=== PATIENT | male | born 1950 | race Caucasian/White ===

== ENCOUNTER 2017-04-24 18:04 | Inpatient (IN) | payer OTHER, MEDICARE ==
[~2017-04-24] VITALS: Ht 185.4 cm; Wt 79.4 kg
[~2017-04-24 18:04] MED LIST: ADVAIR 250-501 EACH INH; ASPIRIN81 M4 PO; ATACAND16 M1 PO; ATACAND16 MG PO; ATORVASTATIN CA20 MG PO; AUGMENTIN 875-1 EACH PO; AVELOX400 M1 PO; AZITHROMYCIN250 M1 PO; BACTRIM 400-801 EACH PO; BRILINTA90 M1 PO; CLONAZEPAM1 MG PO; DAILY MULTIPLE1 EACH PO; ESCITALOPRAM10 MG PO; LEXAPRO20 M1 PO; LIPITOR20 M2 PO; LIPITOR40 M1 PO; LOPERAMIDE2 M1 PO; MONTELUKAST SOD10 M1 PO; MUCINEX600 M1 PO; NASACORT16.9 ML; OFEV150 MG PO; OMEPRAZOLE40 M1 PO; PREDNISONE10 M2 PO; PREDNISONE20 M1 PO; TESSALON PERLE100 M1 PO; VENTOLIN HFA18 GM INH; XANAX0.5 M1 PO; ZOLPIDEM TARTRA10 MG PO; ZYRTEC10 M6 PO
--- NOTE | 2017-04-24 18:19 | NUR ---
66 YEAR OLD MALE TO ER FROM HIS HOME WITH INCREASED WEAKNESS AND SOB FOR THE PAST FEW DAYS. PT HAD L LUNG TRANSPLANT AT [facility] IN [place] IN SEPTEMBER, A COUPLE WEEKS AGO HE WAS ADMITTED THERE AGAIN DUE TO INFECTION TO INCISION AREA AND THEY RE-OPENED THE AREA . PT HAS PICC LINE IN PLACE TO R ARM. MALCOLM INTACT TO L BREAST LINE . PT COMPLAINS OF 3 DAYS OF INCREASED WEAKNESS AND NO APPETITE, TEMP 99.9 ON ARRIVAL TO ER . PT ALSO NOTED WITH CHEST TUBE TO L SIDE .
--- NOTE | 2017-04-24 18:23 | NUR ---
PT EVALUATED BY PA STUDENT.
--- NOTE | 2017-04-24 19:05 | ED DYSPNEA/ASTHMA COMPLAINT ---
History of Present Illness General Chief Complaint: General Adult Stated Complaint: BIBA WEAKNESS, POOR FLUID&FOOD INTAKE X2 WEEKS Source: patient Exam Limitations: no limitations Vital Signs & Intake/Output Vital Signs & Intake/Output Vital Signs Date Time Temp Pulse Resp B/P B/P Pulse O2 O2 Flow FiO2 Mean Ox Delivery Rate 04/25 1600 Room Air 04/25 1528 98.6 73 20 138/72 98 04/25 1139 80 120/70 04/25 0647 99.9 87 20 122/76 96 Nasal 2.0L Cannula 04/25 0246 93 Nasal 2.0L Cannula 04/25 0209 98.8 86 20 146/83 95 Room Air 04/25 0020 98.3 82 18 1324/82 95 Room Air 04/24 2339 99.9 04/24 2226 99.9 90 18 140/86 95 Room Air 04/24 2112 100.2 04/24 2049 100.2 ED Intake and Output 04/25 0000 04/24 1200 Intake Total 0 Output Total Balance 0 Intake, Oral 0 Patient 175 lb Weight Triage Note: 66 YEAR OLD MALE TO ER FROM HIS HOME WITH INCREASED WEAKNESS AND SOB FOR THE PAST FEW DAYS. PT HAD L LUNG TRANSPLANT AT [facility] IN [place] IN SEPTEMBER, A COUPLE WEEKS AGO HE WAS ADMITTED THERE AGAIN DUE TO INFECTION TO INCISION AREA AND THEY RE-OPENED THE AREA . PT HAS PICC LINE IN PLACE TO R ARM. MAREN INTACT TO L BREAST LINE . PT COMPLAINS OF 3 DAYS OF INCREASED WEAKNESS AND NO APPETITE, TEMP 99.9 ON ARRIVAL TO ER . PT ALSO NOTED WITH CHEST TUBE TO L SIDE . Triage Nurses Notes Reviewed? yes Onset: Gradual Duration: getting worse Timing: recent history Severity: severe HPI: Patient is a 66-year-old male with a past medical history of hypertension, hyperlipidemia, COPD NOT on home O2, interstitial pulmonary fibrosis, pneumonitis, CAD status post cardiac stent who is communication professor is Dr. Barros who received a left-sided lung transplant from [facility] in September 2016 in which he subsequently had a pulmonary embolism after and multiple secondary postoperative infections where his last admission and discharge to [facility] was approximately 2-3 weeks ago. It is noted through old records that patient's last cardiac catheterization was March showing 60% stenosis of LAD. He currently has IVC filter Patient presents emergency room brought in by ambulance for feeling a 2 week history of generalized weakness and fatigue patient is currently too weak to get out of bed and this patient has had poor by mouth intake and a past 2 days patient is describing room spinning sensation and mild headache concerns. Patient has had a 2 week history of clear productive cough and dyspnea on exertion. Denies any fever chills chest pain and arm pain jaw pain nausea vomiting leg swelling, hemoptysis. Patient currently is taking CellCept, Bactrim, Levaquin and meropenem prophylactically for his lung transplant. (BROCK SARMIENTO,YEHUDA) Allergies Coded Allergies: adhesive tape (RASH - PAPER TAPE ONLY 04/24/17) Reconcile Medications 0.9 % Sodium Chloride (Sodium Chloride) 0.9 % SYRINGE 10 ML IV DAILY POST INFUSION (Reported) Alendronate Sodium 70 MG TABLET 1 TAB PO QSUN OSTEOPOROSIS (Reported) in the morning, at least 30 minutes before the first food, beverage, or medication of the day Aspirin (Aspirin*) 81 MG TAB.CHEW 1 TAB PO DAILY CARDIAC STENTS (Reported) Atorvastatin Calcium (Lipitor) 40 MG TABLET 1 TAB PO DAILY cholestrol ( Reported) Calcium Citrate/Vitamin D3 (Citracal + D Maximum Caplet) 315 MG-250 UNIT TABLET 1 TAB PO TID SUPPLEMENT (Reported) Cetirizine HCl (Zyrtec) 10 MG TABLET 1 TAB PO DAILY SEASONAL ALLERGIES ( Reported) Docusate Sodium (Colace) 100 MG CAPSULE 1 CAP PO TID STOOL SOFTENER (Reported ) Ferrous Fumarate (Ferretts) 325 MG (106 MG) TABLET 1 TAB PO DAILY SUPPLEMENT (Reported) Heparin Sodium,Porcine/Pf (Heparin Flush 10 Units/Ml Syr) 10 UNIT/ML SYRINGE 5 ML IV AD POST INFUSION (Reported) Levofloxacin 750 MG TABLET 1 TAB PO Q48H ANTIBIOTIC (Reported) Magnesium Oxide (Magnesium) 400 MG CAPSULE 1 CAP PO BID SUPPLEMENT (Reported) Metoprolol Tartrate 25 MG TABLET 12.5 MG PO BID HEART/BP (Reported) Mycophenolate Mofetil (Cellcept) 500 MG TABLET 1 TAB PO BID ANTIREJECTION ( Reported) Nystatin 100,000 UNIT/ML ORAL.SUSP 5 ML PO TID THRUSH (Reported) Omeprazole 20 MG TABLET.DR 1 TAB PO DAILY GI (Reported) Ondansetron HCl (Zofran) 4 MG TABLET 1 TAB PO BID PRIOR TO TIGECYCLINE ( Reported) Prednisone 5 MG TABLET 1 TAB PO DAILY STEROID (Reported) Sulfamethoxazole/Trimethoprim (Bactrim 400-80 MG Tablet) 400 MG-80 MG TABLET 1 TAB PO Monday IPF Tacrolimus (Prograf) 1 MG CAPSULE 3 MG PO 2100 IMMUNOSUPPRESSION (Reported) Tacrolimus (Prograf) 1 MG CAPSULE 2 CAP PO 0900 IMMUNOSUPPRESSION (Reported) Tacrolimus (Prograf) 0.5 MG CAPSULE 1 CAP PO 0900 IMMUNOSUPPRESSION (Reported ) Tigecycline 50 MG VIAL 50 MG IV BID INFECTION (Reported) Valganciclovir Hydrochloride (Valcyte) 450 MG TABLET 1 TAB PO Q48H CMV ( Reported) (SANIYA BEE,CAROL) Past History Travel History Traveled to [place] past 21 day No Medical History Any Pertinent Medical History? 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 No (YEHUDA SALEEM) Review of Systems Review of Systems Constitutional: Reports: see HPI, malaise, weakness. EENTM: Reports: no symptoms. Respiratory: Reports: see HPI, cough, short of breath. Cardiovascular: Reports: see HPI. Denies: chest pain, peripheral edema. GI: Reports: no symptoms. Genitourinary: Reports: no symptoms. Musculoskeletal: Reports: no symptoms. Skin: Reports: no symptoms. Neurological/Psychological: Reports: see HPI, headache. Hematologic/Endocrine: Reports: no symptoms. Immunologic/Allergic: Reports: no symptoms. All Other Systems: Reviewed and Negative (YEHUDA SALEEM) Physical Exam Physical Exam General Appearance: no apparent distress, alert, comfortable Head: atraumatic Eyes: Bilateral: normal appearance, PERRL, EOMI. Respiratory: no respiratory distress Comments: HEENT: Normal EENT exam, extraocular motion intact, no nystagmus. Pupils equally round and reactive to light and accommodation. Nose is atraumatic. External auditory canal and Tympanic membranes clear. Pharynx normal. No swelling or edema. Neck: Supple, no lymphadenopathy, normal range of motion without pain or tenderness Back: Nontender, no CVA tenderness. Cardiovascular: Regular rate and rhythms no murmurs rubs or gallops, normal JVP Respiratory: Chest nontender. LEFT SIDED INDWELLING THORACO CATHETER Right sided posterior lung crackles noted Abdomen: Soft, nontender nondistended, no appreciable organomegaly. Normal bowel sounds. No ascites Extremity: No edema, no calf tenderness to palpation, normal and equal pulses. Neuro: Alert oriented x3, motor sensory normal, cranial nerves II through XII grossly intact. Skin: No appreciable rash on exposed skin, skin is warm and dry. Psych: Mood and affect is normal, memory and judgment is normal. Diagram Chest, Abdomen, Back: 1) Surgical incision scar noted with intact maren with noted yellow dried crusty scant discharge Core Measures ACS in differential dx? No Severe Sepsis Present: No Septic Shock Present: No (BROCK SARMIENTO,YEHUDA) Progress Differential Diagnosis: asthma, AMI, bronchitis, costochondritis, CHF, COPD, musculoskeletal pain, pericarditis, pulmonary embolism, pneumonia, pneumothorax, rib fracture, unstable angina, VERTIGO, SAH, CANCER, PNA, URI Plan of Care: Orders Procedure Date/time Status CBC WITHOUT DIFFERENTIAL 04/26 06 Active BASIC ELECTROLYTES PLUS BUN&CR 04/26 06 Active Heart Healthy Diet 04/25 B Active OXYGEN SETUP (GEN) 04/25 1430 Complete BASIC ELECTROLYTES PLUS BUN&CR 04/25 0800 Active Change service to 04/25 0736 Active CULTURE,BODY FLUID 04/25 0728 Active CYTOLOGY SPECIMEN 04/25 07 Active BODY FLUID TOTAL PROTEIN 04/25 0728 Active BODY FLUID LDH 04/25 0728 Active BODY FLUID CELL COUNT 04/25 0728 Active BODY FLUID GLUCOSE 04/25 0728 Active BODY FLUID ALBUMIN 04/25 0728 Active WESTERGREN SED RATE 04/25 0600 Complete Drains/Tubes 04/25 0357 Active Vital Signs 04/25 0328 Active Teach/Educate 04/25 0328 Active Pain Treatment and Response 04/25 0328 Active Nutritional Intake, Monitor 04/25 0328 Active Isolation 04/25 0328 Active Intake & Output 04/25 0328 Active Patient Care Conference 04/25 0328 Active Activity/Ambulation 04/25 0328 Active Vital Signs 04/25 0302 Active Code Status 04/25 0034 Active Patient Data 04/25 0021 Active BODY FLUID CELL COUNT 04/25 0015 Complete Lab Add-on Test 04/25 UNK Active VTE Mechanical Prophylaxis 04/25 UNK Active Nursing Misc 04/25 UNK Active BODY FLUID CELL COUNT 04/25 UNK Active Admit to inpatient 04/24 2332 Active Admit to inpatient 04/24 2323 Active Intake & Output 04/24 2052 Active Add-on Test (ER Only) 04/24 2042 Active CULTURE,URINE 04/24 2032 Active URINALYSIS 04/24 2032 Complete D-DIMER 04/24 1945 Complete C-REACTIVE PROTEIN 04/24 194 Complete Current Medications Sig/Howard Start time Last Medication Dose Stop Time Status Admin Valacyclovir HCl 450 MG Q48 04/27 1000 CAN (Valtrex) Trimethoprim/ 1 TAB 04/26 1000 AC Sulfamethoxazole (Bactrim SS) Tacrolimus 3 MG 2100 04/25 2100 AC (Prograf 1MG) Atorvastatin Calcium 40 MG 1700 04/25 1700 AC 04/25 (Lipitor) 1543 Heparin Sodium 5,000 UNIT Q8 04/25 1619 AC 04/25 (Porcine) 1707 Prednisone 5 MG DAILY 04/25 1231 AC 04/25 1352 Aspirin 81 MG DAILY 04/25 1000 AC 04/25 (Aspirin) 1138 Docusate Sodium 100 MG TID 04/25 1000 AC 04/25 (Colace) 1543 Ferrous Sulfate 325 MG DAILY 04/25 1000 AC 04/25 (Feosol) 1138 Levofloxacin 750 MG Q48 04/25 1000 AC 04/25 (Levaquin) 1139 Loratadine 10 MG DAILY 04/25 1000 AC 04/25 (Claritin) 1139 Metoprolol Tartrate 12.5 MG BID 04/25 1000 AC 04/25 (Lopressor) 1139 Mycophenolate Mofetil 500 MG BID 04/25 1000 AC 04/25 (CellCept) 1142 Tacrolimus 2.5 MG 0900 04/25 0900 AC 04/25 (Prograf 1MG) 1137 Meropenem 1 GM IQ8 04/25 0800 AC 04/25 (MEROPENEM) 1543 Omeprazole 20 MG DAILY AC 04/25 0700 AC 04/25 (Prilosec) 0504 Nystatin 5 ML TID 04/25 0300 AC 04/25 (Mycostatin Susp) 1543 Non-Formulary 0 SEE ADMIN CRITERIA 04/25 0230 CAN Medication (NON FORMULARY) Sodium Chloride 1,000 ML Q10H 04/25 0200 AC 04/25 (Normal Saline 0.9%) 1354 Laboratory Tests 04/25/17 0735: ESR Westergren 50 H 04/25/17 0600: Tacrolimus Pending 04/25/17 0236: ESR Westergren Cancelled 04/25/17 0136: Lymphocytes 10, % Normal PMNs 90, Fluid WBC 3586 H, Fld Total RBCs Counted 1914 H 04/24/17 2210: Lactic Acid Cancelled 04/24/177: Urine Color YEL, Urine Clarity CLEAR, Urine pH 7.0, Ur Specific [place] 1.010, Urine Protein NEG, Urine Ketones NEG, Urine Nitrite NEG, Urine Bilirubin NEG, Urine Urobilinogen 0.2, Ur Leukocyte Esterase NEG, Ur Microscopic EXAM NOT REQUIRED, Urine Hemoglobin NEG, Urine Glucose NEG Microbiology 04/25 728 BODY FLUID: Body Fluid Culture - COLB 04/25 728 BODY FLUID: Gram Stain - COLB 04/24 2147 URINE ROUT: Urine Culture - RES 04/24 2112 BLOOD: Blood Culture - RES On initial examination patient was in no apparent distress has nontender abdomen and physical exam was unremarkable except for right sided posterior crackles on exam it was due to history of present illness is most likely attributed to patient's pulmonary fibrosis. CT scan of the head was unremarkable for acute process and CT of the chest was also showing concerns of chronic pulmonary fibrosis and postprocedural transplant effusion. Patient's blood culture sputum culture and urine culture currently pending as well as the body fluid from the thoracal drain is pending. I initially discussed patient with transplant communication professor Dr. GUPTA from [facility] or my significant concerns of patient's low-grade fever and failure to thrive and presentation where she discussed with me that there currently is no transplant beds available at her facility and could not accept patient for transfer. She advised to continue antibiotics and have patient be admitted to our facility and slow fluid resuscitation and discussed with me that she will call our hospital when a bed becomes available to accept the patient. I also discussed admission with Dr. Esposito who was aware of admission Discussed admission with Dr. Lara Patient will be placed in isolation and isolation respiratory precautions was administered while patient was in the emergency room. Discussed disposition plan with the patient who agrees Patient also had improvement of room spinning sensation with meclizine. IV SLOW FLUID was administered (BROCK SARMIENTO,YEHUDA) Diagnostic Imaging: Viewed by Me: CT Scan. Radiology Impression: SEE COMMENTS Initial ED EK BPM, LAD Comments: PATIENT: RUBY SPARKS PRESENT AGE: 66 PATIENT ACCOUNT NO: [id number] : 51 LOCATION: [facility] ORDERING PHYSICIAN: YEHUDA SARMIENTO SERVICE DATE: 04/24/17 EXAM TYPE: CAT - CTA CHEST-PULMONARY EMBOLISM EXAMINATION: CT ANGIOGRAM CHEST WITH AND WITHOUT CONTRAST (CT PULMONARY ANGIOGRAM FOR PE) CLINICAL INFORMATION: Shortness of breath, previous lung transplant, history of pulmonary embolism. COMPARISON: Chest CT 05/05/2016. TECHNIQUE: Prior to contrast administration, noncontrast localization images were obtained. Subsequently, multidetector volumetric imaging was performed from the thoracic inlet to below the diaphragms following the administration of 95 mL Optiray 350 intravenous contrast. No contrast reaction reported. Sagittal, coronal, and MIP oblique sagittal reformatted images were obtained on the CT workstation, uploaded to PACS, and reviewed. Total exam dose-length product 562 mGy-cm. FINDINGS: QUALITY OF STUDY/CONTRAST BOLUS: Satisfactory PULMONARY ARTERIES: No central or segmental pulmonary emboli. THORACIC AORTA: Mild proximal aortic ectasia measuring 3.7 cm AP dimension. No discrete aneurysm or dissection. LUNG: There are extensive fibrotic changes throughout the majority of the right upper, middle, and to a lesser degree lower lobes largely unchanged to the exam performed approximately one year ago. The development of suspicious-appearing pulmonary nodules is not identified. What likely represents the transplanted left lung demonstrates findings most consistent with scattered areas of subsegmental atelectasis in the lingula along with posterior and medial basal segments of the left lower lobe. Previous exam was pretransplant so these regions cannot be compared. Left upper lobe is fairly well-distended with the exception of a focus of discoid atelectasis along the major fissure. PLEURA: Trace left-sided pleural effusion somewhat loculated posteriorly and medially. MEDIASTINUM: Scattered mildly prominent mediastinal lymph nodes, the largest subcarinal measuring 1.1 cm short axis dimension likely reactive. No evidence of septal bowing or right heart strain. CHEST WALL/AXILLA: No axillary or internal mammary lymphadenopathy. OSSEOUS STRUCTURES: No aggressive-appearing osseous lesions. UPPER ABDOMEN: Unremarkable. No reflux of contrast into the hepatic veins to suggest elevated right heart pressures. IMPRESSION: 1. No evidence of pulmonary embolism. 2. Extensive fibrotic changes throughout the right lung without suspicious pulmonary nodules. 3. Post transplant findings on the left side with a small effusion and underlying atelectasis as noted without evidence of focal infiltrate or other acute process. VTE: Negative for pulmonary embolism. DICTATED BY: NOEMI JIMENEZ MD DATE/TIME DICTATED:04/24/172144 DISTRICT ATTORNEY:DIDI DATE/TIME TRANSCRIBED:04/24/17 PATIENT: RUBY SPARKS PRESENT AGE: 66 PATIENT ACCOUNT NO: [id number] : 51 LOCATION: [facility] ORDERING PHYSICIAN: YEHUDA SARMIENTO SERVICE DATE: 04/24/17 EXAM TYPE: CAT - CT HEAD WO IV CONTRAST EXAMINATION: CT HEAD WITHOUT CONTRAST CLINICAL INFORMATION: 66-year-old man with vertigo. COMPARISON: None TECHNIQUE: Contiguous axial imaging was performed from the skull base to vertex without intravenous administration of contrast. DLP: 618 mGy-cm FINDINGS: There is no evidence of acute intracranial hemorrhage or territorial infarction. No abnormal mass effect or midline shift is seen. Pittman to white matter differentiation is well preserved. No extra-axial fluid collections are identified. The ventricles are normal in size. There is no abnormal attenuation within the brain parenchyma. The osseous structures and soft tissues are normal. A small amount of layering fluid is seen in the right sphenoid sinus. IMPRESSION: No acute intracranial pathology. DICTATED BY: GIOVANNY HERMAN MD DATE/TIME DICTATED:04/24/172145 DISTRICT ATTORNEY:DIDI (YEHUDA SALEEM) Departure Departure Disposition: STILL A PATIENT Condition: Fair Clinical Impression Primary Impression: Fever Secondary Impressions: Lung transplanted, Pleural effusion, Pulmonary fibrosis, Vertigo, Weakness Referrals: RENATO MOODY DO (PCP/Family) Departure Forms: Customer Survey General Discharge Information Admission Note Spoke With: YUKO PILLAI MD Documentation of Exam: Documentation of any treatments & extenuating circumstances including Concerns Regarding Discharge (functional status, medication knowledge or non-compliance, living conditions, etc.) that warrant an admission rather than observation: [ Discussed patient with Dr. PILLAI agrees with general medicine admission in which patient requires slow fluid resuscitation isolation precaution, cultures are pending, pulmonary consultation and will require hospital to hospital transfer once a bed becomes available at patient's transplant facility at near [facility]. OUTpatient treatment at this time due to significant immunocompromise and recent transplant would be medically harmful.] (YEHUDA SALEEM) PA/MONOTYPIST Co-Sign Statement Statement: ED Attending supervision documentation- [X] I saw and evaluated the patient. I have also reviewed all the pertinent lab results and diagnostic results. I agree with the findings and the plan of care as documented in the PA's/MONOTYPIST's documentation. [X] I have reviewed the ED Record and agree with the PA's/MONOTYPIST's documentation. [] Additions or exceptions (if any) to the PAs/MONOTYPIST's note and plan are summarized below: [] (SANIYA BEE,CAROL) Critical Care Note Critical Care Note Critical Care Time: non-applicable (YEHUDA SALEEM)
--- NOTE | 2017-04-24 19:48 | NUR ---
EKG DONE AND SHOWN TO DR KOTHARI. BLOOD DRAWN AND SENT TO LAB. LAV,SST,BLUE,NUNES,PINK, 1ST SET OF BLOOD CULTURES.
[2017-04-24 20:07] LABS: ABSOLUTE BASOPHIL COUNT 0 /CUMM (0.0-0.2); ABSOLUTE EOSINOPHIL COUNT 0 /CUMM (0.0-0.7); ABSOLUTE GRANULOCYTE CT 3.6 /CUMM (1.4-6.5); ABSOLUTE LYMPH COUNT 0.7 /CUMM (1.2-3.4); ABSOLUTE MONOCYTE COUNT 0.5 /CUMM (0.10-0.60); BASOPHIL % 0.8 % (0.0-2.0); EOSINOPHIL % 0.9 % (0-5); HEMATOCRIT 27.4 % (42-52); MEAN CORPUSCULAR HGB 28.3 PG (27.0-31.0); MEAN CORPUSCULAR HGB CONC 32.7 G/DL (33.0-37.0); MEAN CORPUSCULAR VOLUME 86.6 FL (80.0-94.0); PLATELET COUNT 305 /CUMM (130-400); RBC DISTRIBUTION WIDTH 19.8 % (11.5-14.5); RED BLOOD CELL CT 3.17 /CUMM (4.70-6.10); WHITE BLOOD CELL COUNT 4.9 /CUMM (4.8-10.8)
[2017-04-24] MEDS ORDERED: ALENDRONATE SOD70 M2 PO (20:26)
[2017-04-24] MEDS ORDERED: COLACE100 M1 PO (20:28)
[2017-04-24] MEDS ORDERED: CITRACAL + D M1 EACH PO (20:28)
[2017-04-24] MEDS ORDERED: CELLCEPT500 M2 PO (20:28)
[2017-04-24] MEDS ORDERED: LEVOFLOXACIN750 M1 PO (20:29)
[2017-04-24] MEDS ORDERED: FERRETTS106 MG PO (20:29)
[2017-04-24] MEDS ORDERED: MAGNESIUM400 M1 PO (20:30)
[2017-04-24] MEDS ORDERED: METOPROLOL TART25 M1 PO (20:31)
[2017-04-24] MEDS ORDERED: HEPARIN FL IV (20:32)
[2017-04-24] MEDS ORDERED: SODIUM CHLORIDE50 M2 IV (20:33)
[2017-04-24] MEDS ORDERED: NYSTATIN100000 UNI PO (20:34)
[2017-04-24] MEDS ORDERED: OMEPRAZOLE20 M3 PO (20:34)
[2017-04-24] MEDS ORDERED: ZOFRAN4 M2 PO (20:35)
[2017-04-24] MEDS ORDERED: PREDNISONE5 M1 PO (20:38)
[2017-04-24] MEDS ORDERED: PROGRAF1 M1 PO ×2 (20:41→20:42)
[2017-04-24] MEDS ORDERED: PROGRAF0.5 MG PO (20:43)
[2017-04-24] MEDS ORDERED: VALCYTE450 MG PO (20:44)
[2017-04-24] MEDS ORDERED: TIGECYCLINE50 MG IV (20:44)
[2017-04-24] MEDS ORDERED: ZYRTEC10 M3 PO (20:45)
--- NOTE | 2017-04-24 20:51 | NUR ---
PT AND STATES THEY DO NOT WANT ANY SCANS DONE. PT AND EDUCATED ON THE REASONING FOR SCANS. TORSTEN GUTIÉRREZ AT BEDSIDE FOR FURTHER EXPLANATION.
--- NOTE | 2017-04-24 21:12 | NUR ---
PT MEDICATED WITH OFIRMEV FOR ORAL TEMP OF 100.2. WILL RE-EVALUATE.
--- NOTE | 2017-04-24 21:32 | NUR ---
PT TO AND FROM CAT SCAN VIA STRETCHER.
--- NOTE | 2017-04-24 21:49 | NUR ---
URINE TRIO SENT TO LAB.
--- NOTE | 2017-04-24 21:50 | CT SCAN REPORT ---
EXAMINATION: CT HEAD WITHOUT CONTRAST CLINICAL INFORMATION: 66-year-old man with vertigo. COMPARISON: None TECHNIQUE: Contiguous axial imaging was performed from the skull base to vertex without intravenous administration of contrast. DLP: 618 mGy-cm FINDINGS: There is no evidence of acute intracranial hemorrhage or territorial infarction. No abnormal mass effect or midline shift is seen. Pittman to white matter differentiation is well preserved. No extra-axial fluid collections are identified. The ventricles are normal in size. There is no abnormal attenuation within the brain parenchyma. The osseous structures and soft tissues are normal. A small amount of layering fluid is seen in the right sphenoid sinus. IMPRESSION: No acute intracranial pathology.
--- NOTE | 2017-04-24 22:21 | CT SCAN REPORT ---
EXAMINATION: CT ANGIOGRAM CHEST WITH AND WITHOUT CONTRAST (CT PULMONARY ANGIOGRAM FOR PE) CLINICAL INFORMATION: Shortness of breath, previous lung transplant, history of pulmonary embolism. COMPARISON: Chest CT 05/05/2016. TECHNIQUE: Prior to contrast administration, noncontrast localization images were obtained. Subsequently, multidetector volumetric imaging was performed from the thoracic inlet to below the diaphragms following the administration of 95 mL Optiray 350 intravenous contrast. No contrast reaction reported. Sagittal, coronal, and MIP oblique sagittal reformatted images were obtained on the CT workstation, uploaded to PACS, and reviewed. Total exam dose-length product 562 mGy-cm. FINDINGS: QUALITY OF STUDY/CONTRAST BOLUS: Satisfactory PULMONARY ARTERIES: No central or segmental pulmonary emboli. THORACIC AORTA: Mild proximal aortic ectasia measuring 3.7 cm AP dimension. No discrete aneurysm or dissection. LUNG: There are extensive fibrotic changes throughout the majority of the right upper, middle, and to a lesser degree lower lobes largely unchanged to the exam performed approximately one year ago. The development of suspicious-appearing pulmonary nodules is not identified. What likely represents the transplanted left lung demonstrates findings most consistent with scattered areas of subsegmental atelectasis in the lingula along with posterior and medial basal segments of the left lower lobe. Previous exam was pretransplant so these regions cannot be compared. Left upper lobe is fairly well-distended with the exception of a focus of discoid atelectasis along the major fissure. PLEURA: Trace left-sided pleural effusion somewhat loculated posteriorly and medially. MEDIASTINUM: Scattered mildly prominent mediastinal lymph nodes, the largest subcarinal measuring 1.1 cm short axis dimension likely reactive. No evidence of septal bowing or right heart strain. CHEST WALL/AXILLA: No axillary or internal mammary lymphadenopathy. OSSEOUS STRUCTURES: No aggressive-appearing osseous lesions. UPPER ABDOMEN: Unremarkable. No reflux of contrast into the hepatic veins to suggest elevated right heart pressures. IMPRESSION: 1. No evidence of pulmonary embolism. 2. Extensive fibrotic changes throughout the right lung without suspicious pulmonary nodules. 3. Post transplant findings on the left side with a small effusion and underlying atelectasis as noted without evidence of focal infiltrate or other acute process. VTE: Negative for pulmonary embolism.
--- NOTE | 2017-04-24 22:27 | NUR ---
PT RESTING ON STRETCHER, DENIES ANY COMPLAINTS. ORAL TEMPNOW 99.9. REMAINS AT BEDSIDE. WILL CONTINUE TO MONITOR.
--- NOTE | 2017-04-24 22:28 | NUR ---
TORSTEN GUTIÉRREZ AT BEDSIDE.
--- NOTE | 2017-04-24 23:38 | NUR ---
PT CONTINUES TO REST ON STRETCHER. AWARE THAT WE ARE AWAITING DISPO.
--- NOTE | 2017-04-24 23:51 | NUR ---
PHARMACY CALLED FOR MEROPENEM PER EMAR.
--- NOTE | 2017-04-25 00:21 | NUR ---
PT MEDICATED PER EMAR WITH ZOFRAN AND MEROPENEM. PT DENIES ANY COMPLAINTS. WILL CONTINUE TO MONITOR.
--- NOTE | 2017-04-25 00:45 | History & Physical ---
See Addendum [facility] 04/25/17 0044: General Information and HPI MD Statement: I have seen and personally examined RUBY SPARKS and documented this H&P. The patient is a 66 year old M who presented with a patient stated chief complaint of [fatigue]. 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 The patient states that in September 2016 he was admitted at [facility] for the right lung transplant. Sent home. Around February 2017 he started feeling sick. He notes lots of phlegm and return to [facility] March. During this time he was found to have incision site infection. The incision site was re-opened. He reports that he had fluid drained from his left lung. However during this procedure he states that air pockets were introduced into his. He currently now has a chest tube because of this. Patient states that since April 07 he has had a decreased appetite. Since last Monday he has felt sick. He has been laying in bed for the past 4 days. He states that he has not been watching TV while he has been laying in bed, a sign that he is sick. The patient also reports some clear phlegm for the past 2 days. He reports a fever of 99, chills, headaches, nausea from his antibiotics. He denies any sore throat, chest pain, shortness of breath, abdominal pain, or dysuria. 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 spouse Services at Home: Oxygen Primary Language: Emirati Smoking Status: Never Smoked ETOH Use: denies use Illicit Drug Use: denies illicit drug use Living Will? no Power of Dam Operator/HCP? no Functional Ability ADLs Independent: dressing, eating, toileting, bathing. Ambulation: independent IADLs Independent: shopping, housework, finances, food prep, telephone, transportation , medication admin. Review of Systems Review of Systems Constitutional: Reports: chills, fever. EENTM: Reports: see HPI (headache), throat pain. Cardiovascular: Denies: chest pain. Respiratory: Reports: cough. Denies: short of breath. GI: Reports: nausea. Denies: abdominal pain. Genitourinary: Denies: dysuria. Exam & Diagnostic Data Last 24 Hrs of Vital Signs/I&O Vital Signs Date Time Temp Pulse Resp B/P B/P Pulse O2 O2 Flow FiO2 Mean Ox Delivery Rate 04/25 0246 93 Nasal 2.0L Cannula 04/25 0209 98.8 86 20 146/83 95 Room Air 04/25 0020 98.3 82 18 1324/82 95 Room Air 04/24 2339 99.9 04/24 2226 99.9 90 18 140/86 95 Room Air 04/24 2112 100.2 04/24 2049 100.2 04/24 1830 Room Air 04/24 1807 99.4 105 18 167/94 94 Room Air Intake & Output 04/25 0800 04/25 0000 04/24 1600 Intake Total 0 Output Total Balance 0 Intake, Oral 0 Patient 175 lb 175 lb Weight Physical Exam General Appearance Alert, Oriented X3, Cooperative, No Acute Distress Skin central midline sternal scar. inscission scar and strplaes outline his left breast towards his axilla. drain tube clean, dry and intact. yellow-bloody fluid in resevoir. Skin Temp/Moisture Exam: Warm/Dry HEENT Atraumatic, PERRLA, EOMI Neck Supple, no treacheal deviation, no tenderness, no lymphadenopathy Cardiovascular Regular Rate, Normal S1, Normal S2 Lungs R lung wheezing Abdomen Normal Bowel Sounds, Soft, No Tenderness Neurological Normal Speech Extremities No Edema, Normal Pulses Diagnostic Data Other Results HEAD CT: FINDINGS: There is no evidence of acute intracranial hemorrhage or territorial infarction. No abnormal mass effect or midline shift is seen. Pittman to white matter differentiation is well preserved. No extra-axial fluid collections are identified. The ventricles are normal in size. There is no abnormal attenuation within the brain parenchyma. The osseous structures and soft tissues are normal. A small amount of layering fluid is seen in the right sphenoid sinus. IMPRESSION: No acute intracranial pathology. CHEST CTA IMPRESSION: 1. No evidence of pulmonary embolism. 2. Extensive fibrotic changes throughout the right lung without suspicious pulmonary nodules. 3. Post transplant findings on the left side with a small effusion and underlying atelectasis as noted without evidence of focal infiltrate or other acute process. Assessment/Plan Assessment: The patient is a 66-year-old male with a past history of interstitial pulmonary fibrosis, left lung transplant at [facility] in 2016, PE, IVC filter, hypertension, hyperlipidemia anemia, and GERD presenting with increasing fatigue since Monday with a tmax of 100.2, and wbc 4.9 who will undergo evaluation for the cause of his fatigue. As Ranked By This Provider Problem List: 1. Fatigue Assessment/Plan The patient is a 66-year-old male with a past history of interstitial pulmonary fibrosis, left lung transplant at [facility] in 2016, PE, IVC filter, hypertension, hyperlipidemia anemia, and GERD presenting with increasing fatigue since Monday with a tmax of 100.2, and wbc 4.9 with an unknown current cause of his fatigue. The patient is currently on levofloxacin, Bactrim, and meropenem. He was supposed to have his chest tube removed today at [place] but he was unable to make his appointment. His CT head and CTA did not show any acute pathology. Given his immunocompromised state and previous wound infection he would benefit from further evaluation. The patient does not want to be transferred to [facility] for care. We will rule out any secondary infections, confirm his home medications, and continue his home medications. We will obtain a panculture, call pulmonology and infectious disease consult, send pleural fluid for culture and continue hydration for 1L normal saline. -Follow-up pancultures -Confirm home medications -Follow-up pulmonology and infectious disease consult -Follow-up pleural fluid cultures -Continue hydration -Consider transferring the patient to [facility] 2. DVT prophylaxis Assessment/Plan Mechanical 3. Full code status Assessment/Plan Full code Core Measures/Miscellaneous Acute Coronary Syndrome ACS Diagnosis: No Cerebrovascular Accident CVA/TIA Diagnosis: No Congestive Heart Failure CHF Diagnosis: No VTE (View Protocol) VTE Risk Factors: Acute medical illness, Age > 40, Previous [facility] prophylaxis d/t: No contraindications No VTE Pharm Prophylaxis d/t: No contraindications VTE Diagnosis: No VTE Type: NONE VTE Confirmed by (Test): NONE Sepsis (View Protocol) Severe Sepsis Present: No Septic Shock Septic Shock Present: No Miscellaneous Documentation Attending Case Discussed With: VINOD VAZQUEZ M.D Primary Care Physician: RENATO MOODY DO Patient sees these Specialists NA Level of Patient Care: General Medicine [facility] 04/25/17 0550: General Information and HPI Allergies/Medications Home Med list Alendronate Sodium 70 MG TABLET 1 TAB PO QSUN OSTEOPOROSIS (Reported) in the morning, at least 30 minutes before the first food, beverage, or medication of the day Aspirin (Aspirin*) 81 MG TAB.CHEW 1 TAB PO DAILY CARDIAC STENTS (Reported) Atorvastatin Calcium (Lipitor) 40 MG TABLET 1 TAB PO DAILY cholestrol ( Reported) Calcium Citrate/Vitamin D3 (Citracal + D Maximum Caplet) 315 MG-250 UNIT TABLET 1 TAB PO TID SUPPLEMENT (Reported) Cetirizine HCl (Zyrtec) 10 MG TABLET 1 TAB PO DAILY SEASONAL ALLERGIES ( Reported) Docusate Sodium (Colace) 100 MG CAPSULE 1 CAP PO TID STOOL SOFTENER (Reported ) Ferrous Fumarate (Ferretts) 325 MG (106 MG) TABLET 1 TAB PO DAILY SUPPLEMENT (Reported) Heparin Sodium,Porcine/Pf (Heparin Flush 10 Units/Ml Syr) 10 UNIT/ML SYRINGE 5 ML IV AD POST INFUSION (Reported) Levofloxacin 750 MG TABLET 1 TAB PO Q48H ANTIBIOTIC (Reported) Magnesium Oxide (Magnesium) 400 MG CAPSULE 1 CAP PO BID SUPPLEMENT (Reported) Metoprolol Tartrate 25 MG TABLET 12.5 MG PO BID HEART/BP (Reported) Mycophenolate Mofetil (Cellcept) 500 MG TABLET 1 TAB PO BID ANTIREJECTION ( Reported) Nystatin 100,000 UNIT/ML ORAL.SUSP 5 ML PO TID THRUSH (Reported) Omeprazole 20 MG TABLET.DR 1 TAB PO DAILY GI (Reported) Ondansetron HCl (Zofran) 4 MG TABLET 1 TAB PO BID PRIOR TO TIGECYCLINE ( Reported) Prednisone 5 MG TABLET 1 TAB PO DAILY STEROID (Reported) Sulfamethoxazole/Trimethoprim (Bactrim 400-80 MG Tablet) 400 MG-80 MG TABLET 1 TAB PO Monday IPF Tacrolimus (Prograf) 0.5 MG CAPSULE 1 CAP PO 0900 IMMUNOSUPPRESSION (Reported ) Tacrolimus (Prograf) 0.5 MG CAPSULE 7 CAP PO BID lung transplant Valganciclovir Hydrochloride (Valcyte) 450 MG TABLET 1 TAB PO Q48H CMV ( Reported) Resident Review Statement Resident Statement: examined this patient, discussed with manager of internal, agreed with manager of internal Other Findings: Mr Sparks is a 66-year-old gentleman currenlty on immunouppressive therapy with past medical history of hypertension, hyperlipidemia, COPD not on home oxygen, idiopathic pulmonary fibrosis as well as recently transplanted left lung in September 2016 at [facility] who experienced multiple complaications including need for ECHMO, development of a PE (requiring surgical thrombectomy and IVC filter), and episode of Influenzea, left plueral effusion (requiring decortication), surigical site infection (with mycobacterim foruitum) and a pneumothorax who presented to the emergency department on 04/24/2017 complaining of weakness, fatigue, dizziness and poor by mouth intake over the last 14 days The patient [facility] where he underwent aggressive rehabilitation. He states that he was doing exceptionally well. Patient states into the end of March however he felt that he has been unable to eat. He states beginning Friday April 21, 2017 He has not been feeling well and has had increasing lethargy. He has also had decreased by mouth intake. He states that he spent the course of the weekend in bed, and after not getting better, he came into the ED for additional work up. Patient is followed by Dr Herrera R: On review of systems the patient did endorse fever, chills, nausea. He denied any chest pain or chest discomfort. E: E Temperature 100.2, pulse 105, respirations 18, blood pressure 167/94. Saturating 94% on room air. HEENT: extraocular motion intact, no nystagmus. Nose is atraumatic. External auditory canal and Tympanic membranes clear. Pharynx normal. No swelling or edema. Neck: Supple, no lymphadenopathy, normal range of motion without pain or tenderness Skin:WNL.Central Midline Scar. Nevin Intact. Clean, dry, no tenderness with light palpation. Cardiovascular: Regular rate and rhythm no murmurs rubs or gallops. Respiratory: Chest nontender. No respiratory distress, Mild right lung wheezing. Chest tube present on left, draining straw-colored fluid. Abdomen: Soft, nontender nondistended, no appreciable organomegaly. Normal bowel sounds. No ascites, no rebound or guarding. Extremity: No edema, no calf tenderness to palpation, normal and equal pulses. No crepitus or fluctuation. Neuro:AOX 3. CN 2 - 12 intact. L: White blood cell, 4.9, H&H 9.0 and 27.4. Platelets 305. ProBNP.447 C- reactive protein 3.2. ESR pending. I: SERVICE DATE: 04/24/17 EXAM TYPE: CAT - CT HEAD WO IV CONTRAST IMPRESSION: No acute intracranial pathology. SERVICE DATE: 04/24/17 EXAM TYPE: CAT - CTA CHEST-PULMONARY EMBOLISM IMPRESSION: 1. No evidence of pulmonary embolism. 2. Extensive fibrotic changes throughout the right lung without suspicious pulmonary nodules. 3. Post transplant findings on the left side with a small effusion and underlying atelectasis as noted without evidence of focal infiltrate or other acute process. VTE: Negative for pulmonary embolism. A/P This is a 66-year-old gentleman who recently underwent lung transplantation at [facility] who experienced multiple complaications including need for ECHMO, development of a PE (requiring surgical thrombectomy and IVC filter), and episode of Influenzea, left plueral effusion (requiring decortication), surigical site infection and a pneumothorax has been admitted for lethargy and malaise and weakness. Will admit the patient to general medical service and resume his home medications. Reconcile home medications with in am. Check Tacrolimus levels Rule out any secondary infections and obtain ID consultation for additonal recomendations on adequate prophylaxis and coverage. Blood cultures, sputum culture, urine culture, pleural fluid studies. Gentle hydration with normal saline. Consider patient transfer to [facility] in a.m. Patient was scheduled to have an appoinntment on the week of 04/24/[address] tube. May inquire with Dr Herrera when this can be done. Continue home medications for CAD: Lopressor, 12.5 BID, Lipitor, Aspirin Regular diet in am. Follow Daily CBC and BEP. DVT prophylaxis: ALPS Patient is a full code. YUKO PILLAI 04/25/17 0637: Attending MD Review Statement Attending Statement Attending MD Statement: examined this patient, discuss w/resident/PA/ACCOUNTING SYSTEMS MANAGER, agreed w/resident/PA/ACCOUNTING SYSTEMS MANAGER, reviewed EMR data (avail), reviewed images, amended to note Attending Assessment/Plan: CC: Lethargy and weakness PMH: HTN, HLD, CAD S/P stent, pulmonary fibrosis S/P lung transplant, PE S/P IVC filter ? "Open heart surgery" Patient has extensive past medical history, pulmonary fibrosis patient underwent left lung transplant September 2016, followed by more than 2 months of hospitalization and then rehabilitation. At rehabilitation patient was found to have pulmonary embolism so he was sent back to hospital where he had "Open heart surgery" for, clot retrieval. Patient was eventually sent home when he developed left incision site infection, he went back to the hospital again with the open it, ? Debridement followed by placement of nevin and 3 chest tube placed. Patient was sent home on 3 different antibiotics, 2 chest tubes were eventually removed and patient currently has 1 tube. Currently patient is on meropenem, levofloxacin, Bactrim, valganciclovir, immunosuppression with tacrolimus prednisone and mycophenolate mofetil. Last 3 days patient was not feeling well, generalized lethargy and weakness, decreased appetite, decreased by mouth intake , feeling feverish, mild increase in cough and sputum production with mild nausea. He was worried about that the infection he came to ER. Today he had a follow-up appointment with the transplant physician which he could not make it Vitals: Tmax 100.2, HR 105 on presentation improved to 90, RR 18, blood pressure 167/94, saturating well on room air On exam: A O 3, cooperative, no acute distress, neck supple, JVD normal, no lymphadenopathy, mucosa moist, no focal neurological deficit, no dependent edema , no obvious skin rashes or inflammation except stage I sacral decubitus with no secondary infection. CVS: S1-S2, RRR. RS: Diffuse crackles on right side, clear on left, chest tube present on left side draining straw-colored fluid, nevin in place, no local fluctuation crepitus or drainage, mild induration present. Abdomen: Soft, NT, ND, bowel sounds present. Labs: WBC 4.9,, neutrophils 73%, hemoglobin 9.0, hematocrit 27.4, platelets 305, BMP unremarkable, troponin less than 0.01, CRP 3.2, proBNP 447, d-dimer 1400, UA unremarkable CT head: No acute intracranial pathology. CTA chest: 1. No evidence of pulmonary embolism. 2. Extensive fibrotic changes throughout the right lung without suspicious pulmonary nodules. 3. Post transplant findings on the left side with a small effusion and underlying atelectasis as noted without evidence of focal infiltrate or other acute process. A and P 66-year-old male with extensive past medical history with the pulmonary fibrosis with recent left lung transplant complicated by pulmonary embolism and wound infection currently on meropenem, levofloxacin, Bactrim, chest tube drain, came to ER for worsening lethargy, decreased by mouth intake decreased appetite since last 3 days. Mildly increased cough and sputum production which is clear. His found to have Tmax of 100.2 in ER is no significant leukocytosis but given has extensive surgical history, immunocompromised state and wound infection, he would benefit from further evaluation. A call was placed to [facility] for possible transfer, they do not have bed availability and suggested to admit here and may get transfer later if bed available. Meanwhile patient does not want to go to that facility as he will be away from the family. At this point we should rule out any secondary infections, superadded fungal infection. For now continue his home medications of meropenem, levofloxacin, Bactrim, CellCept, tacrolimus, prednisone, nystatin, metoprolol, atorvastatin and aspirin. Obtain blood cultures 2 sets, sputum culture, urine culture, gentle hydration for 1 L normal saline, pulmonology consult in a.m., ID consult in a.m., obtain records from [facility] about recent infection, send pleural fluid for culture.
--- NOTE | 2017-04-25 01:05 | NUR ---
HOUSESTAFF AT BEDSIDE FOR EVAL.
--- NOTE | 2017-04-25 01:21 | NUR ---
PT'S RM ASSIGNMENT 236 BED 1
--- NOTE | 2017-04-25 01:26 | NUR ---
REPORT GIVEN TO ACACIA COWART ON GEN MED.
--- NOTE | 2017-04-25 02:05 | NUR ---
DRAINAGE FROM CHEST TUBE DRAIN COLLECTED AND WALKED TO LAB VIA THIS RN PER ORDER.
--- NOTE | 2017-04-25 03:23 | NUR ---
PT ARRIVED TO FLOOR AT 0246 VIA STRETCHER. A&OX3, AFEBRILE, ON RA O2 SAT 88%, PT PLACED ON 2L NC O2 SAT 93%. NO DISTRESS NOTED. NO COMPLIANTS OF PAIN OR DISCOMFORT. MALCOLM TO LEFT UPPER CHEST INTACT. CHEST TUBE DRAIN TO LEFT UPPER CHEST. PICC TO SANJEEV, NOT ACCESSED NO XRAY DONE TO CONFIRM PLACED TO USE, PAGED MD GATO VELASQUEZ TO QUESTION IF XRAY SHOULD BE DONE TO USE PICC AND D/C IV. AWAITING ORDERS.
--- NOTE | 2017-04-25 06:38 | Admission Certification ---
Admission Certification Certification Statement - As attending physician, I certify that at the time of - admission, based on clinical presentation, severity of - symptoms, need for further diagnostic testing and - therapeutic interventions, and risk of adverse outcomes - without in-hospital treatment, in my clinical assessment, - this patient requires an acute hospital stay for a minimum - of two nights or longer. I have also considered psychsocial - factors such as support system, advanced age, financial - issues, cognitive issues, and failed out-patient treatments, - past re-admission history, safety of patient, and lack of - compliance as applicable. Specific rationale supporting this admission is: Status post lung transplant : Fever
[2017-04-25 06:47] VITALS: BP 122/76
--- NOTE | 2017-04-25 09:42 | Event Note ---
Event Note Event Note: I personally spoke with Dr. Jae Naylor at [facility]. He filled us on the interval events post lung transplant surgery in Sep 2016. Apparently, Mr. Leyva has had an extensive and complicated course. He underwent a left single lung transplant earlier in Sep 2016. His hospital course was complicated. He was on ECHMO till his lungs recuperated, and it took them at least a couple of months to get him off supplemental oxygen. Soon after discharge from the hospital he developed a massive pulmonary embolism and underwent surgical thrombectomy and IVC filter. He was discharged and re- admitted again in a couple of weeks for Influenza (around end of December). He was subsequently discharged home, and was dong well, but then started to develop left sided pleural effusion that Dr. Naylor was following for a while, diuresing but to no avail. The effusion did not resolve, and so he underwent thoracentesis which reportedly was bloody. He was then advised to undergo a decortication. 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 His other post procedure complications included delirium, KRISTAL, PNA, with development of pneumothorax that did not resolve and so a chest tube was put in which Dr. Orosco planned to pull out in his office once the pneumothorax had resolved. He was discharged from [facility] over 2 weeks ago (end of March) and was to follow up with Dr. Orosco in the office on apparently April 17, 2017. However, he never amde it to his office for the appointment as had a fall and could not bring him. At that time he was also c/o severe nausea, and was attributing it to his IV antibiotic, and so Dr. Orosco discontinued Tigecycline and started him on Meropenem 1000mg Q8 IV on April 15, 2017. He also set up an appointment to see him in the office yesterday April 24, 2017. However when he did not show up at [facility] office, he gave him a call and found out that he was had stopped taking Meropenem on his own, for 3 days and that he was c/o dizziness, and lightheadedness and felt has if he was going to fall. Thsi concerned Dr. Orosco, who questioned whether he could be developing a stroke? and so advised him to go to the local hospital and have himself evaluated for possible stroke or any acute infectious process vs failure to thrive. Dr. Juarez, is of the opinion that we should march his fevers and if we dont think that there is an acute infection cooking or he does not have a stroke, athat we discharge him home with f/u as an outpatient, else he would probably benefit [facility].
--- NOTE | 2017-04-25 09:49 | RADIOLOGY REPORT ---
EXAMINATION: XR PORTABLE CHEST CLINICAL INFORMATION: Confirm PICC line placement COMPARISON: CXR from 09/23/[address] from 04/24/2017. TECHNIQUE: Portable frontal view of the chest was obtained. FINDINGS: Skin marne of the left lower, anterior chest, with drainage tube in place. The transplanted left lung is well aerated. Again noted is mild pleural thickening of the left [id number] hemithorax. The right lung is hypoinflated and right diaphragm elevated. There is diffuse interstitial opacity with subtle lucencies from honeycombing in the right lung. The right arm peripherally inserted catheter is in satisfactory position with catheter tip located at the junction of the superior vena cava and right atrium. Cardiac silhouette is normal in size. The sternotomy wires are intact. No acute osseous abnormality. IMPRESSION: The peripherally inserted catheter is in satisfactory position with its tip located at the cavoatrial junction.
--- NOTE | 2017-04-25 10:34 | Cons- Pulmonary ---
See Addendum General Information and HPI Consulting Request Date of Consult: 04/25/17 Requested By: Dr. Lynn Reason for Consult: pulmonary fibrosis with recent left lung transplant complicated wound infection currently Source of Information: patient, old records Exam Limitations: no limitations History of Present Illness: 66-year-old male with extensive past medical history including pulmonary fibrosis status post left lung transplant on 10/11/2016 that was complicated by pulmonary embolism 3 weeks post the transplant and wound infection that was first noticed on 03/06/2017 currently on meropenem, levofloxacin, Bactrim. On 03/09/2017 patient was found to have multiple fluid collection in the follow- up imaging. He was admitted to further evaluate his infected surgical incision and the new multiple fluid collection on the left side chest imaging. The surgical incision was reopened, clean, and multiple draining tubes were placed. He stayed in the hospital for one month before he was sent out on antibiotics. Yesterday patient presented to [place] ED for worsening lethargy, decreased by mouth intake decreased appetite since last 3 days. His was found to have Temp of 100.2 in ER but with significant leukocytosis. A call was placed to [facility] for possible transfer, they do not have bed availability and suggested to admit here and may get transfer later if bed available. Also patient was refusing transfer because it's far from his family to visit him. Patient was admitted and was continued on his home medications of meropenem, levofloxacin, Bactrim, CellCept, tacrolimus, prednisone, nystatin, metoprolol, atorvastatin and aspirin. Panculture was obtained which so far still negative. He was started on gentle hydration, ID was consult in a.m. the primary team is working on obtain records from [facility] about recent infection. Allergies/Medications Allergies: Coded Allergies: adhesive tape (RASH - PAPER TAPE ONLY 04/24/17) Home Med List: 0.9 % Sodium Chloride (Sodium Chloride) 0.9 % SYRINGE 10 ML IV DAILY POST INFUSION (Reported) Alendronate Sodium 70 MG TABLET 1 TAB PO QSUN OSTEOPOROSIS (Reported) in the morning, at least 30 minutes before the first food, beverage, or medication of the day Aspirin (Aspirin*) 81 MG TAB.CHEW 1 TAB PO DAILY CARDIAC STENTS (Reported) Atorvastatin Calcium (Lipitor) 40 MG TABLET 1 TAB PO DAILY cholestrol ( Reported) Calcium Citrate/Vitamin D3 (Citracal + D Maximum Caplet) 315 MG-250 UNIT TABLET 1 TAB PO TID SUPPLEMENT (Reported) Cetirizine HCl (Zyrtec) 10 MG TABLET 1 TAB PO DAILY SEASONAL ALLERGIES ( Reported) Docusate Sodium (Colace) 100 MG CAPSULE 1 CAP PO TID STOOL SOFTENER (Reported ) Ferrous Fumarate (Ferretts) 325 MG (106 MG) TABLET 1 TAB PO DAILY SUPPLEMENT (Reported) Heparin Sodium,Porcine/Pf (Heparin Flush 10 Units/Ml Syr) 10 UNIT/ML SYRINGE 5 ML IV AD POST INFUSION (Reported) Levofloxacin 750 MG TABLET 1 TAB PO Q48H ANTIBIOTIC (Reported) Magnesium Oxide (Magnesium) 400 MG CAPSULE 1 CAP PO BID SUPPLEMENT (Reported) Metoprolol Tartrate 25 MG TABLET 12.5 MG PO BID HEART/BP (Reported) Mycophenolate Mofetil (Cellcept) 500 MG TABLET 1 TAB PO BID ANTIREJECTION ( Reported) Nystatin 100,000 UNIT/ML ORAL.SUSP 5 ML PO TID THRUSH (Reported) Omeprazole 20 MG TABLET.DR 1 TAB PO DAILY GI (Reported) Ondansetron HCl (Zofran) 4 MG TABLET 1 TAB PO BID PRIOR TO TIGECYCLINE ( Reported) Prednisone 5 MG TABLET 1 TAB PO DAILY STEROID (Reported) Sulfamethoxazole/Trimethoprim (Bactrim 400-80 MG Tablet) 400 MG-80 MG TABLET 1 TAB PO Monday IPF Tacrolimus (Prograf) 1 MG CAPSULE 3 MG PO 2100 IMMUNOSUPPRESSION (Reported) Tacrolimus (Prograf) 1 MG CAPSULE 2 CAP PO 0900 IMMUNOSUPPRESSION (Reported) Tacrolimus (Prograf) 0.5 MG CAPSULE 1 CAP PO 0900 IMMUNOSUPPRESSION (Reported ) Tigecycline 50 MG VIAL 50 MG IV BID INFECTION (Reported) Valganciclovir Hydrochloride (Valcyte) 450 MG TABLET 1 TAB PO Q48H CMV ( Reported) Current Medications: Current Medications Sig/Howard Start time Last Medication Dose Route Stop Time Status Admin Acetaminophen 650 MG ONCE ONE 04/25 0845 DC 04/25 PO 04/25 0846 0919 Acetaminophen 650 MG ONCE ONE 04/25 0400 DC 04/25 PO 04/25 0401 0503 Acetaminophen 0 .STK-MED ONE 04/24 2103 DC IV Acetaminophen 1,000 MG ONCE ONE 04/24 2100 DC 04/24 N/A 1 UNIT IV 07/10 2114 2112 Aspirin 81 MG DAILY 04/25 1000 AC PO Atorvastatin Calcium 40 MG 1700 04/25 1700 AC PO Docusate Sodium 100 MG TID 04/25 1000 AC PO Ferrous Sulfate 325 MG DAILY 04/25 1000 AC PO Heparin Sodium 100 UNIT ONCE ONE 04/25 0215 DC (Porcine) IV 04/25 0216 Levofloxacin 750 MG Q48 04/25 1000 AC PO Loratadine 10 MG DAILY 04/25 1000 AC PO Meclizine HCl 0 .STK-MED ONE 04/24 2104 DC PO Meclizine HCl 25 MG ONCE ONE 04/24 1930 DC 04/24 PO 04/24 1931 2112 Melatonin 5 MG ONCE ONE 04/25 0330 DC 04/25 PO 04/25 0331 0347 Meropenem 1 GM IQ8 04/25 0800 AC 04/25 IV 0815 Meropenem 1 GM ONCE ONE 04/24 2345 DC 04/25 IV 04/24 2346 0021 Metoprolol Tartrate 12.5 MG BID 04/25 1000 AC PO Mycophenolate Mofetil 500 MG BID 04/25 1000 AC PO Non-Formulary 0 SEE ADMIN CRITERIA 04/25 0230 CAN Medication ANY Nystatin 5 ML TID 04/25 0300 AC PO Omeprazole 20 MG DAILY AC 04/25 0700 AC 04/25 PO 0504 Ondansetron HCl 0 .STK-MED ONE 04/25 0021 DC .ROUTE Ondansetron HCl 4 MG ONCE ONE 04/25 0015 DC 04/25 IV 04/25 0016 0021 Sodium Chloride 1,000 ML Q10H 04/25 0200 AC 04/25 IV 0347 Sodium Chloride 1,000 ML BOLUS ONE 04/24 1930 DC 04/24 IV 04/24 Tacrolimus 3 MG 2100 04/25 2100 AC PO Tacrolimus 2.5 MG 0904/25 0900 AC PO Trimethoprim/ 1 TAB MONDAY WED THURSDAY 04/26 1000 AC Sulfamethoxazole PO Valacyclovir HCl 450 MG Q48 04/27 1000 CAN PO Review of Systems Review of Systems Constitutional: Reports: chills (yesterday), fever, weakness. Denies: unexplained weight loss. EENTM: Denies: visual changes, ear pain, hearing changes. Cardiovascular: Denies: chest pain, orthopena, palpitations, peripheral edema, syncope. Respiratory: Denies: cough, hemoptysis, short of breath, sputum production. GI: Denies: abdominal pain, constipation, diarrhea, distention, nausea, vomiting. Genitourinary: Denies: dysuria, hematuria. Musculoskeletal: Denies: back pain, joint pain. Skin: Denies: rash. 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 Home Who Do You Live With? spouse Services at Home: Oxygen Primary Language: Honduran Smoking Status: Never Smoked ETOH Use: denies use Illicit Drug Use: denies illicit drug use Living Will? no Power of Investigation Division Sergeant/HCP? no Functional Ability ADLs Independent: dressing, eating, toileting, bathing. Ambulation: independent IADLs Independent: shopping, housework, finances, food prep, telephone, transportation , medication admin. Exam & Diagnostic Data Last 24 Hrs of Vital Signs/I&O Vital Signs Date Time Temp Pulse Resp B/P B/P Pulse O2 O2 Flow FiO2 Mean Ox Delivery Rate 04/25 0647 99.9 87 20 122/76 96 Nasal 2.0L Cannula 04/25 0246 93 Nasal 2.0L Cannula 04/25 0209 98.8 86 20 146/83 95 Room Air 04/25 0020 98.3 82 18 1324/82 95 Room Air 04/24 2339 99.9 04/24 2226 99.9 90 18 140/86 95 Room Air 04/24 2112 100.2 04/24 2049 100.2 04/24 1830 Room Air 04/24 1807 99.4 105 18 167/94 94 Room Air Intake & Output 04/25 1600 04/25 0800 04/25 0000 Intake Total 580 0 Output Total Balance 580 0 Intake, IV 400 Intake, Oral 180 0 Number 0 Bowel Movements Patient 79.379 kg 79.379 kg Weight Physical Exam General Appearance: no apparent distress, alert, awake, comfortable Head: atraumatic, normal appearance Eyes: Bilateral: normal appearance, PERRL, EOMI. Ears, Nose, Throat: normal pharynx, normal ENT inspection Neck: normal inspection Respiratory: chest non-tender Cardiovascular: regular rate/rhythm, Normal S1/S2 with no MRGs Gastrointestinal: normal bowel sounds, soft, non-tender Last 48 Hrs of Labs/Levon: Laboratory Tests 04/25/17 0735: ESR Westergren Pending 04/25/17 0236: ESR Westergren Cancelled 04/25/17 0136: Lymphocytes 10, % Normal PMNs 90, Fluid WBC 3586 H, Fld Total RBCs Counted 1914 H 04/24/17 2210: Lactic Acid Cancelled 04/24/17 2147: Urine Color YEL, Urine Clarity CLEAR, Urine pH 7.0, Ur Specific [place] 1.010, Urine Protein NEG, Urine Ketones NEG, Urine Nitrite NEG, Urine Bilirubin NEG, Urine Urobilinogen 0.2, Ur Leukocyte Esterase NEG, Ur Microscopic EXAM NOT REQUIRED, Urine Hemoglobin NEG, Urine Glucose NEG 04/24/17 1945: Anion Gap 10, Estimated GFR > 60, BUN/Creatinine Ratio 17.0, Glucose 86, Lactic Acid 1.2, Calcium 8.8, Total Bilirubin 0.8, AST 32, ALT 45, Alkaline Phosphatase 97, Troponin I < 0.01, C-Reactive Prot, Quant 3.2 H, Ecs-N-Xghdsaeosad Pept 447 H, Total Protein 5.6 L, Albumin 3.2 L, Globulin 2.4, Albumin/Globulin Ratio 1.3, D-Dimer High Sensitivty 1400 H, CBC w Diff MAN DIFF ORDERED, RBC 3.17 L, MCV 86.6, MCH 28.3, RDW 19.8 H, MPV 7.0 L, Gran % 73.0, Lymphocytes % 14.9 L, Monocytes % 10.4 H, Eosinophils % 0.9, Basophils % 0.8, Absolute Granulocytes 3.6, Segmented Neutrophils 65, Band Neutrophils 2, Absolute Lymphocytes 0.7 L, Lymphocytes 17 L, Monocytes 15 H, Absolute Monocytes 0.5, Eosinophils 1, Absolute Eosinophils 0, Absolute Basophils 0, Platelet Estimate VERIFIED BY SMEAR, Anisocytosis 1+, PUBS MCHC 32.7 L, Fld Total RBCs Counted 100 Assessment/Plan Impression/Plan: 66-year-old man with idiopathic pulmonary fibrosis status post lung transplant at [facility] on 10/11/2016, maintained on immunosuppressive therapy since, with multiple postop complications including pulmonary embolism, left pleural effusion, and surgical incision infection who was admitted yesterday because of lethargy, fatigue, dizziness and decreased oral intake, found to have a low-grade fever and anemia without leukocytosis. This morning patient is afebrile, hemodynamically stable, saturating very well on room air, and maintaining a heart rate within normal limits. It was explained to the patient that in case that his situation did not improve or go worse he may need to be transferred to a facility that has more lung transplant experience. CTA: 1. No evidence of pulmonary embolism. 2. Extensive fibrotic changes throughout the right lung without suspicious pulmonary nodules 3. Post transplant findings on the left side with a small effusion and underlying atelectasis as noted without evidence of focal infiltrate or other acute process. Plan: * Patient may benefit from transfer to a facility with a lung transplant experience * Follow up pending panculture * Continue antibiotic as per ID * DVT prophylaxis at all time * Full code Consult Acknowledgment - Thank you for your consult request.
--- NOTE | 2017-04-25 12:09 | PN- Att Addend ---
Attending Addendum Attending Brief Note Patient seen and examined. Resting comfortably not in any acute distress. Denies chest pain or shortness of breath at rest. Denies palpitations. He reports feeling better compared to presentation. Reports appetite has improved this morning. He was sent to the emergency room for evaluation by his transplant surgeon on account of complaints of malaise and lethargy. There is a hemodynamically stable however he did have a low-grade fever of 100.2 overnight. He does admit to productive cough on and off at home but denies any worsening pulmonary symptoms at present. Vital Signs Date Time Temp Pulse Resp B/P B/P Pulse O2 O2 Flow FiO2 Mean Ox Delivery Rate 04/25 1139 80 120/70 04/25 0647 99.9 87 20 122/76 96 Nasal 2.0L Cannula 04/25 0246 93 Nasal 2.0L Cannula 04/25 0209 98.8 86 20 146/83 95 Room Air 04/25 0020 98.3 82 18 1324/82 95 Room Air 04/24 2339 99.9 04/24 2226 99.9 90 18 140/86 95 Room Air 04/24 2112 100.2 04/24 2049 100.2 04/24 1830 Room Air 04/24 1807 99.4 105 18 167/94 94 Room Air Gen. appearance: Not in any respiratory distress Heart: S1-S2 regular Abdomen: Soft, nontender with normal bowel sounds Extremities: No pedal edema. PICC line in place right upper extremity. No surrounding erythema or swelling. Skin: No rashes Lungs: Fair entry bilaterally with chronic crepitus right lung base. There is a large thoracotomy scar along the left chest wall. [place] are still in place. There is no erythema. There is no tenderness. There is no discharge or open area. He has Pleurx catheter anteriorly along the left chest wall. It is draining serous material with what what appears to be tissue contents as well. Laboratory Tests 04/25/17 0735: ESR Westergren Pending 04/25/17 0236: ESR Westergren Cancelled 04/25/17 0136: Lymphocytes 10, % Normal PMNs 90, Fluid WBC 3586 H, Fld Total RBCs Counted 1914 H 04/24/17 2210: Lactic Acid Cancelled 04/24/17 2147: Urine Color YEL, Urine Clarity CLEAR, Urine pH 7.0, Ur Specific [place] 1.010, Urine Protein NEG, Urine Ketones NEG, Urine Nitrite NEG, Urine Bilirubin NEG, Urine Urobilinogen 0.2, Ur Leukocyte Esterase NEG, Ur Microscopic EXAM NOT REQUIRED, Urine Hemoglobin NEG, Urine Glucose NEG 04/24/171944: Anion Gap 10, Estimated GFR > 60, BUN/Creatinine Ratio 17.0, Glucose 86, Lactic Acid 1.2, Calcium 8.8, Total Bilirubin 0.8, AST 32, ALT 45, Alkaline Phosphatase 97, Troponin I < 0.01, C-Reactive Prot, Quant 3.2 H, Nhd-F-Ofocxuytilz Pept 447 H, Total Protein 5.6 L, Albumin 3.2 L, Globulin 2.4, Albumin/Globulin Ratio 1.3, D-Dimer High Sensitivty 1400 H, CBC w Diff MAN DIFF ORDERED, RBC 3.17 L, MCV 86.6, MCH 28.3, RDW 19.8 H, MPV 7.0 L, Gran % 73.0, Lymphocytes % 14.9 L, Monocytes % 10.4 H, Eosinophils % 0.9, Basophils % 0.8, Absolute Granulocytes 3.6, Segmented Neutrophils 65, Band Neutrophils 2, Absolute Lymphocytes 0.7 L, Lymphocytes 17 L, Monocytes 15 H, Absolute Monocytes 0.5, Eosinophils 1, Absolute Eosinophils 0, Absolute Basophils 0, Platelet Estimate VERIFIED BY SMEAR, Anisocytosis 1+, PUBS MCHC 32.7 L, Fld Total RBCs Counted 100 Microbiology 04/25 728 BODY FLUID: Body Fluid Culture - COLB 04/25 728 BODY FLUID: Gram Stain - COLB 04/24 2147 URINE ROUT: Urine Culture - RES 04/24 2112 BLOOD: Blood Culture - RECD 04/24 1945 BLOOD: Blood Culture - RECD 04/24 1910 LOWER RESP: Respiratory Culture - COLB 04/24 1910 LOWER RESP: Gram Stain - COLB Problems: 1. Pulmonary fibrosis status post left lung transplant September 2016 2. Wound dehiscence and pulmonary infection currently on meropenem, levofloxacin and Bactrim 3. Pleural effusion status post drainage tube placement 4. Dizziness and lethargy 5. Low-grade fever Plan: -Patient presented primarily secondary to dizziness and malaise. Unclear if this is secondary to underlying infection, medication side effect or deconditioning secondary to his multiple medical problems check orthostatic vitals. Continue IV hydration. - Follow-up blood and pleural fluid cultures (markeldy elevated WBC count in pleural fluid). Continue current IV antibiotic regimen pending results of above and evaluation by the infectious disease service. -His transplant surgeon is willing to accept him back at the [facility] for further management if ongoing admission is required. We'll follow- up with the pulmonary and infectious disease service here at [facility]. -Management of chest tube per pulmonology service.
--- NOTE | 2017-04-25 12:11 | Cons- Infect Disease ---
See Addendum General Information and HPI Consulting Request Date of Consult: 04/25/17 Requested By: VINOD VAZQUEZ M.D Reason for Consult: Low-grade fever in a patient with IPF status post lung transplant Source of Information: patient, old records History of Present Illness: This is a 66-year-old man with a history of idiopathic pulmonary fibrosis, status post lung transplant at [facility] over 6 months prior to admission, with his postop course of 88 days complicated by the need for ECMO, pulmonary embolism, requiring a thrombectomy and IVC filter, and Influenza, discharged on immunosuppressive therapy in the form of Prednisone 5 mg daily, CellCept and Tacrolimus and Bactrim, with the development 2 months after discharge of a left pleural effusion, requiring a VATS decortication, which was complicated by 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 On admission he was febrile to 100.2, with a blood pressure 167/94. Laboratory data revealed a white blood cell count of 5000, BUN/creatinine 17 and 1.0, with normal liver enzymes. Urinalysis negative. Chest x-ray revealed diffuse interstitial opacity with subtle lucencies in the right lung; mild pleural thickening of the left mid to lower hemithorax, with a well aerated transplanted left lung. CT of the head was negative for any acute process. CTA of the chest was negative for pulmonary embolism but revealed extensive fibrotic changes throughout the right lung with a small left pleural effusion and underlying atelectasis with no evidence of any focal infiltrate or other acute process. He was continued on CellCept and Tacrolimus as well as Meropenem, Levaquin and Bactrim and given IV fluids. He has been afebrile overnight and feels improved this morning with no specific complaints. Allergies/Medications Allergies: Coded Allergies: adhesive tape (RASH - PAPER TAPE ONLY 04/24/17) Home Med List: 0.9 % Sodium Chloride (Sodium Chloride) 0.9 % SYRINGE 10 ML IV DAILY POST INFUSION (Reported) Alendronate Sodium 70 MG TABLET 1 TAB PO QSUN OSTEOPOROSIS (Reported) in the morning, at least 30 minutes before the first food, beverage, or medication of the day Aspirin (Aspirin*) 81 MG TAB.CHEW 1 TAB PO DAILY CARDIAC STENTS (Reported) Atorvastatin Calcium (Lipitor) 40 MG TABLET 1 TAB PO DAILY cholestrol ( Reported) Calcium Citrate/Vitamin D3 (Citracal + D Maximum Caplet) 315 MG-250 UNIT TABLET 1 TAB PO TID SUPPLEMENT (Reported) Cetirizine HCl (Zyrtec) 10 MG TABLET 1 TAB PO DAILY SEASONAL ALLERGIES ( Reported) Docusate Sodium (Colace) 100 MG CAPSULE 1 CAP PO TID STOOL SOFTENER (Reported ) Ferrous Fumarate (Ferretts) 325 MG (106 MG) TABLET 1 TAB PO DAILY SUPPLEMENT (Reported) Heparin Sodium,Porcine/Pf (Heparin Flush 10 Units/Ml Syr) 10 UNIT/ML SYRINGE 5 ML IV AD POST INFUSION (Reported) Levofloxacin 750 MG TABLET 1 TAB PO Q48H ANTIBIOTIC (Reported) Magnesium Oxide (Magnesium) 400 MG CAPSULE 1 CAP PO BID SUPPLEMENT (Reported) Metoprolol Tartrate 25 MG TABLET 12.5 MG PO BID HEART/BP (Reported) Mycophenolate Mofetil (Cellcept) 500 MG TABLET 1 TAB PO BID ANTIREJECTION ( Reported) Nystatin 100,000 UNIT/ML ORAL.SUSP 5 ML PO TID THRUSH (Reported) Omeprazole 20 MG TABLET.DR 1 TAB PO DAILY GI (Reported) Ondansetron HCl (Zofran) 4 MG TABLET 1 TAB PO BID PRIOR TO TIGECYCLINE ( Reported) Prednisone 5 MG TABLET 1 TAB PO DAILY STEROID (Reported) Sulfamethoxazole/Trimethoprim (Bactrim 400-80 MG Tablet) 400 MG-80 MG TABLET 1 TAB PO Monday IPF Tacrolimus (Prograf) 1 MG CAPSULE 3 MG PO 2100 IMMUNOSUPPRESSION (Reported) Tacrolimus (Prograf) 1 MG CAPSULE 2 CAP PO 0900 IMMUNOSUPPRESSION (Reported) Tacrolimus (Prograf) 0.5 MG CAPSULE 1 CAP PO 0900 IMMUNOSUPPRESSION (Reported ) Tigecycline 50 MG VIAL 50 MG IV BID INFECTION (Reported) Valganciclovir Hydrochloride (Valcyte) 450 MG TABLET 1 TAB PO Q48H CMV ( Reported) Past History Travel History Traveled to [place] past 21 day No Medical History Blood Transfusion Hx: Yes Neurological: NONE EENT: NONE Cardiovascular: CAD, hypertension, hyperlipidemia Respiratory: COPD, interstitial lung disease, pulmonary embolism, pulmonary fibrosis Gastrointestinal: GERD Hepatic: NONE Renal: NONE Musculoskeletal: NONE Psychiatric: NONE Endocrine: NONE Blood Disorders: anemia Cancer(s): NONE 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 Home Who Do You Live With? spouse Services at Home: Oxygen Primary Language: Setswana Smoking Status: Never Smoked ETOH Use: denies use Illicit Drug Use: denies illicit drug use Living Will? no Power of Retinal Angiographer/HCP? no Functional Ability ADLs Independent: dressing, eating, toileting, bathing. Ambulation: independent IADLs Independent: shopping, housework, finances, food prep, telephone, transportation , medication admin. Review of Systems Review of Systems Constitutional: Reports: unexplained weight loss. All Other Systems: Reviewed and Negative Exam & Diagnostic Data Last 24 Hrs of Vital Signs/I&O Vital Signs Date Time Temp Pulse Resp B/P B/P Pulse O2 O2 Flow FiO2 Mean Ox Delivery Rate 04/25 1139 80 120/70 04/25 0647 99.9 87 20 122/76 96 Nasal 2.0L Cannula 04/25 0246 93 Nasal 2.0L Cannula 04/25 0209 98.8 86 20 146/83 95 Room Air 04/25 0020 98.3 82 18 1324/82 95 Room Air 04/24 2339 99.9 04/24 2226 99.9 90 18 140/86 95 Room Air 04/24 2112 100.2 04/24 2049 100.2 04/24 1830 Room Air 04/24 1807 99.4 105 18 167/94 94 Room Air Intake & Output 04/25 1600 04/25 0800 04/25 0000 Intake Total 580 0 Output Total Balance 580 0 Intake, IV 400 Intake, Oral 180 0 Number 0 Bowel Movements Patient 175 lb 175 lb Weight Physical Exam Other Physical Findings: He is awake and alert in no acute distress. MAXIMUM TEMPERATURE 100.2. Skin reveals no rash. HEENT exam is negative. Neck is supple with no adenopathy. Chest left lateral incision clean, with maren in place, with no erythema or drainage; left chest tube with serosanguineous drainage. Lungs bibasilar crackles right greater than left. Heart regular rhythm with no murmur. Abdomen is soft, nontender with positive bowel sounds. Back no CVA tenderness. Extremities no cyanosis, clubbing or edema. Neuro is without focality. Last 24 Hours of Lab Results: Laboratory Tests 04/25 04/25 04/25 04/24 0735 0236 0136 2210 Chemistry Lactic Acid Cancelled Hematology Lymphocytes (%) 10 % Normal PMNs (%) 90 ESR Westergren Pending Cancelled Other Body Source Fluid WBC (0 - 5 /CUMM) 3586 H Fld Total RBCs Counted (0 /CUMM) 1914 H 04/24 2147 Urines Urine Color (YEL,AMB,STR) YEL Urine Clarity (CLEAR) CLEAR Urine pH (5.0 - 8.0) 7.0 Ur Specific [place] (1.001 - 1.035) 1.010 Urine Protein (NEG,<30 MG/DL) NEG Urine Ketones (NEG) NEG Urine Nitrite (NEG) NEG Urine Bilirubin (NEG) NEG Urine Urobilinogen (0.1 - 1.0 EU/dl) 0.2 Ur Leukocyte Esterase (NEG) NEG Ur Microscopic EXAM NOT REQUIRED Urine Hemoglobin (NEG) NEG Urine Glucose (N MG/DL) NEG 04/24 1945 Chemistry Sodium (137 - 145 mmol/L) 138 Potassium (3.5 - 5.1 mmol/L) 4.6 Chloride (98 - 107 mmol/L) 104 Carbon Dioxide (22 - 30 mmol/L) 24 Anion Gap (5 - 16) 10 BUN (9 - 20 mg/dL) 17 Creatinine (0.7 - 1.2 mg/dL) 1.0 Estimated GFR (>60 ml/min) > 60 BUN/Creatinine Ratio (7 - 25 %) 17.0 Glucose (65 - 99 mg/dL) 86 Lactic Acid (0.7 - 2.1 mmol/L) 1.2 Calcium (8.4 - 10.2 mg/dL) 8.8 Total Bilirubin (0.2 - 1.3 mg/dL) 0.8 AST (17 - 59 U/L) 32 ALT (21 - 72 U/L) 45 Alkaline Phosphatase (< 127 U/L) 97 Troponin I (<0.11 ng/ml) < 0.01 C-Reactive Prot, Quant (<1.0 mg/dL) 3.2 H [id number] Pept (<125 pg/mL) 447 H Total Protein (6.3 - 8.2 g/dL) 5.6 L Albumin (3.5 - 5.0 g/dL) 3.2 L Globulin (1.9 - 4.2 gm/dL) 2.4 Albumin/Globulin Ratio (1.1 - 2.2 %) 1.3 Coagulation D-Dimer High Sensitivty (0 - 243 ng/ml) 1400 H Hematology CBC w Diff MAN DIFF ORDERED WBC (4.8 - 10.8 /CUMM) 4.9 RBC (4.70 - 6.10 /CUMM) 3.17 L Hgb (14.0 - 18.0 G/DL) 9.0 L Hct (42 - 52 %) 27.4 L MCV (80.0 - 94.0 FL) 86.6 MCH (27.0 - 31.0 PG) 28.3 RDW (11.5 - 14.5 %) 19.8 H Plt Count (130 - 400 /CUMM) 305 MPV (7.4 - 10.4 FL) 7.0 L Gran % (42.2 - 75.2 %) 73.0 Lymphocytes % (20.5 - 51.1 %) 14.9 L Monocytes % (1.7 - 9.3 %) 10.4 H Eosinophils % (0 - 5 %) 0.9 Basophils % (0.0 - 2.0 %) 0.8 Absolute Granulocytes (1.4 - 6.5 /CUMM) 3.6 Segmented Neutrophils (42.2 - 75.2 %) 65 Band Neutrophils (0.0 - 5.0 %) 2 Absolute Lymphocytes (1.2 - 3.4 /CUMM) 0.7 L Lymphocytes (20.5 - 51.1 %) 17 L Monocytes (1.7 - 9.3 %) 15 H Absolute Monocytes (0.10 - 0.60 /CUMM) 0.5 Eosinophils (0 - 5.0 %) 1 Absolute Eosinophils (0.0 - 0.7 /CUMM) 0 Absolute Basophils (0.0 - 0.2 /CUMM) 0 Platelet Estimate (ADEQUATE) VERIFIED BY SMEAR Anisocytosis 1+ PUBS MCHC (33.0 - 37.0 G/DL) 32.7 L Other Body Source Fld Total RBCs Counted (%) 100 Last 24 Hours of Levon Results: Blood cultures 2 April 24 negative Urine culture April 24 negative Diagnostic Data Recent Imaging Findings: Chest x-ray revealed diffuse interstitial opacity with subtle lucencies in the right lung; mild pleural thickening of the left mid to lower hemithorax, with a well aerated transplanted left lung. CT of the head was negative for any acute process. CTA of the chest was negative for pulmonary embolism but revealed extensive fibrotic changes throughout the right lung with a small left pleural effusion and underlying atelectasis with no evidence of any focal infiltrate or other acute process. 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 At this time, with no evidence for any new infection and with patient stable, do not see the need to change or add to his current regimen. He can be maintained on his current antibiotic regimen of Meropenem and Levaquin for the Mycobacterium fortuitum surgical site infection. The Bactrim, presumably for PCP prophylaxis, can also be continued. Suggestion: 1. Would consider removal of the left chest tube and maren from the left chest 2. Would restart prednisone at his pre-hospital dose 3. Follow-up recent cultures 4. Continue Meropenem, Levaquin and Bactrim Consult Acknowledgment - Thank you for your consult request.
--- NOTE | 2017-04-25 12:46 | NUR ---
ASSESSMENT OF PATIENT IN AM: PATIENT WITH DRAINAGE TUBE INSERTED INTO LEFT FRONTAL CHEST WALL, DRAINING GTZ COLORED FLUID, EMPTIED VIA SYRINGE 30 ML OBTAINED, SITE OF TUBE, RED, SCABBED, NO DRAIANGE NOTED, STAPLE LINE TO LEFT CHEST WALL, WITH OLD DRY DRAINAGE NOTED, NO REDDNESS, MALCOLM APPEAR TO BE PUSHING OUT OF SKIN, PATIENT REPORTS THAT THEY HAVE BEEN IN SINCE FEBRUARY, PICC LINE TO SANJEEV AWAITING XRAY CONFIRMATION FOR PLACEMENT, FLUSHED AND BLODO RETURN OBTAINED, ONCE XRAY CONFIRMED WILL USE FOR IV FLUIDS AND MEDICATIONS, HEADACHE NOTED IN AM- TYLENOL GIVEN, MDS INTO SEE PATIENT, PLAN CREATED, PATIENT NEEDS MET AND SAFETY MAINTAINED.
--- NOTE | 2017-04-25 14:07 | Event Note ---
Event Note Event Note: I had an extensive conversation with the patient's pulmonary surgeon today. His recommendation is that given the patient's current clinical stability and no recurrence of his low-grade fever so far to continue monitoring the patient at [facility] overnight. If patient remains afebrile he can be discharged home tomorrow and he will follow-up with the patient as an outpatient next week Monday. He does not recommend removing the patient's chest tube at present. He also stated that should patient become febrile again at that point he will accept the patient for transfer to [facility] for further management. At the time of discharge he wants the patient to be given a CD with a copy of his CT scan
[2017-04-25 15:28] VITALS: BP 138/72
[2017-04-25 22:50] VITALS: BP 118/68
[2017-04-26 06:00] VITALS: BP 128/66
--- NOTE | 2017-04-26 07:32 | PN- Housestaff ---
JANETT LUJAN 04/26/17 0731: Subjective Follow-up For: Dizziness, lethargy and fatigue Fever of unknown origin IPF s/p L lung transplant on immunosuppresants. Complaints: no complaints Subjective: Patient seen and examined at bedside. He is eager on going home. He remains afebrile overnight. Denies any chest discomofrt, dpalpitations, dizziness, nausea, vomiting, lightheadedness. Review of Systems Constitutional: Denies: chills, fever, malaise. EENTM: Denies: visual changes. Cardiovascular: Denies: chest pain, palpitations, peripheral edema. Respiratory: Reports: cough, sputum production. Denies: orthopnea, short of breath, wheezing. Gastrointestinal: Denies: abdominal pain, constipation, diarrhea, nausea, vomiting. Genitourinary: Reports: no symptoms. Musculoskeletal: Reports: no symptoms. Neurological/Psychological: Denies: headache, numbness, tingling, tremors. Objective Last 24 Hrs of Vital Signs/I&O Vital Signs Date Time Temp Pulse Resp B/P B/P Pulse O2 O2 Flow FiO2 Mean Ox Delivery Rate 04/26 0600 97.9 77 18 128/66 96 Nasal Cannula 04/25 2250 98.4 80 18 118/68 94 Room Air 04/25 2101 80 118/68 04/25 1600 Room Air 04/25 1528 98.6 73 20 138/72 98 04/25 1139 80 120/70 Intake & Output 04/26 0800 04/26 0000 04/25 1600 Intake Total 1500 1000 Output Total 400 52 730 Balance -400 1448 270 Intake, IV 800 400 Intake, Oral 700 600 Number 0 Bowel Movements Output, Chest 52 30 Tube Drainage Output, Urine 400 700 Physical Exam General Appearance: Alert, Oriented X3, Cooperative, No Acute Distress HEENT: Atraumatic, PERRLA, EOMI, Mucous Membr. moist/pink Neck: Supple, No JVD, +2 Carotid Pulse wo Bruit, No LAD Cardiovascular: Normal S1, Normal S2, No Murmurs Lungs: Clear to Auscultation, Normal Air Movement, has a pleurax catheter and drain on left side of chest, draining serosanginuous fluid, with a healed surgical scar located underneath left breast. Abdomen: Normal Bowel Sounds, Soft, No Tenderness Neurological: Normal Gait, Normal Speech, Strength at 5/5 X4 Ext, Normal Tone, Sensation Intact, Cranial Nerves 3-12 NL, Reflexes 2+ Extremities: No Edema, Normal Pulses, No Tenderness/Swelling, has bruises Current Medications: Current Medications Sig/Howard Start time Last Medication Dose Route Stop Time Status Admin Acetaminophen 650 MG ONCE ONE 04/25 0845 DC 04/25 PO 04/25 0846 0919 Aspirin 81 MG DAILY 04/25 1000 AC 04/25 PO 1138 Atorvastatin Calcium 40 MG 1700 04/25 1700 AC 04/25 PO 1543 Docusate Sodium 100 MG TID 04/25 1000 AC 04/25 PO 2100 Ferrous Sulfate 325 MG DAILY 04/25 1000 AC 04/25 PO 1138 Heparin Sodium 5,000 UNIT Q8 04/25 1619 AC 04/26 (Porcine) SC 0635 Levofloxacin 750 MG Q48 04/25 1000 AC 04/25 PO 1139 Loratadine 10 MG DAILY 04/25 1000 AC 04/25 PO 1139 Melatonin 5 MG ONCE ONE 04/26 0015 DC 04/26 PO 04/26 0016 0045 Meropenem 1 GM IQ8 04/25 0800 AC 04/26 IV 0045 Metoprolol Tartrate 12.5 MG BID 04/25 1000 AC 04/25 PO 2101 Mycophenolate Mofetil 500 MG BID 04/25 1000 AC 04/25 PO 2058 Nystatin 5 ML TID 04/25 0300 AC 04/25 PO 2058 Omeprazole 20 MG DAILY AC 04/25 0700 AC 04/26 PO 0635 Prednisone 5 MG DAILY 04/25 1231 AC 04/25 PO 1352 Sodium Chloride 1,000 ML Q10H 04/25 0200 AC 04/26 IV 0059 Tacrolimus 3 MG 2100 04/25 2100 AC 04/25 PO 2058 Tacrolimus 2.5 MG 0900 04/25 0900 AC 04/25 PO 1137 Trimethoprim/ 1 TAB 04/26 1000 AC Sulfamethoxazole PO Last 24 Hrs of Lab/Levon Results Last 24 Hrs of Labs/Mics: Laboratory Tests 04/26/17 0630: Sodium Pending, Potassium Pending, Chloride Pending, Carbon Dioxide Pending, Anion Gap Pending, BUN Pending, Creatinine Pending, BUN/Creatinine Ratio Pending , CBC w Diff Pending, WBC Pending, RBC Pending, Hgb Pending, Hct Pending, MCV Pending, MCH Pending, RDW Pending, Plt Count Pending, MPV Pending, PUBS MCHC Pending 04/25/17 1000: Fluid WBC Cancelled, Fld Total RBCs Counted Cancelled 04/25/17 0800: Sodium Cancelled, Potassium Cancelled, Chloride Cancelled, Carbon Dioxide Cancelled, Anion Gap Cancelled, BUN Cancelled, Creatinine Cancelled, BUN/ Creatinine Ratio Cancelled 04/25/17 0735: ESR Westergren 50 H Lines/Diet/Fluids Catheters/Tubes: none (chest), drains Drains Still Needed? 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 Yes Assessment/Plan Assessment: 66-year-old male with a PMH of CAD s/p stents, interstitial pulmonary fibrosis status post left lung transplant on 10/11/2016 at [facility] (currently on CellCept, Prograf and oral steroids), complicated by massive pulmonary embolism s/p surgical thrombectomy and IVC filter placement as well as surgical site infection with Mycobacterium Fortuitum (on Meropenem, and Levofloxacin, Bactrim for PCP prophylaxis, Valganciclovir), and development of persistent left-sided pleural effusion s/p decortication and chest tube placement, who presented to the ER with chief complaints of dizziness, lethargy and fevers going on for the past 2 weeks, with decreased by mouth intake, mild increase in cough and non-purulent sputum production with mild nausea going on for the past 3 days. Vitals at the time of admission blood pressure 167/94, respiratory rate of 18, tachycardic to 105, MAXIMUM TEMPERATURE 100.2 saturating 94% on room air. On physical exam he was A&O 3, cooperative, no acute distress, neck supple, JVD normal, no lymphadenopathy, mucosa moist, no focal neurological deficit, no dependent edema, no obvious skin rashes or inflammation except stage I sacral decubitus with no secondary infection. Cardiovascular exam revealed normal S1- S2, and respiratory exam pertinent for diffuse crackles on right side, clear on left, chest tube present on left side draining straw-colored fluid, maren in place, no local fluctuation crepitus or drainage, mild induration present. Abdomen was soft, NT, ND, bowel sounds present. Labs pertinent for H&H of 9.0/27.4, white blood cell count of 4900, platelet count of 305,000. His CMP was unremarkable. First set of troponin negative at less than 0.01, UA unremarkable. Head CT was done which showed no acute intracranial pathology. CTA chest was done which showed no evidence of pulmonary embolism, extensive fibrotic changes throughout the right lung without suspicious pulmonary nodules. Post transplant findings on the left side with a small effusion and underlying atelectasis as noted without evidence of focal infiltrate or other acute process. He was admitted to the general medicine floor and the following problems were addressed: #Dizziness and lethargy Resolved. 2/2 decreased PO intake. #Low grade fevers -Patient had a Tmax of 100.2F on admission. - However, he remained afebrile since. Continue home medications of Meropenem, Levofloxacin, Bactrim, - Reiteriated for his had to bring in Vangalcyclovir. - Send pleural fluid for routine and AFB culture. - ID on, follow recs. #Acute blood loss anemia - H&H dropped from 9.0 to 6.7 on his 2nd post-admission day. -2/2 hemolytic anemia, vs bleeding in pleural space - Send for LDH, LFTs, haptoglobin, rretic count, direct cristela. - No S&sof active bleeding including bleeding from his rectum and/orfrank bleeeding in his chest tube. - This is concerning given the fact that he had sero-sangiunios discharge in his drain which averaged about 60mls/24 hrs, with pleural fluid cytology revealing . F/U a stat CXR to ensure he was not bleeding in his pleural cavity. - Dr. Naylor was also contacted and he was not overly concerned about the drop in the patient's Hb, and stated taht his last Hb upon discharge 2 weeks ago was 7.6. He recommended we transfuse him with blood. It is very much possible that he was hemoconcentrated to begin with. - Transfuse with 1 packed PRBC (irradiated blood). - F/U CBC post transfusion #IPF s/p left lung transplant - Continue on Tacrolimus, Cellcept 500mg PO BID, Prednisone 5mg daily. - Increase Tacrolimus to 3.5mg BID PO as per Dr. Naylor, patient's primary transplant surgeon at [facility]. - Repeat levelsfo Tacrolims in 2 days 04/28/17, and should follow up with Dr. Friedman on Monday05/01/17. #CAD s/p stent Continue ASA 81mg daily, Lipitor 40mg daily, Lopressor 12.5mg BID PO. #GERD Continue Prilosec 20mg daily. #Left sided pneumothorax and pleural effusion s/p pleurax catheter placement - He had a left sided pleurax catheter that drained about 30mls/12 hrs. CXR done in the hospital did not reveal any pneumothorax. - Speaking with Dr. Naylor revealed taht he planned on pulling his chest tube if the pneumothorax had resolved. Decision to pull out the chest tube drain will be deferred to Dr. Naylor with whom the patient has an appointment for May 01, 2017. -DVT prophylaxis -- On ALPs given ABLA. - Code Status - Full Code Problem List: 1. Fever 2. Fatigue Pain Ratin Pain Location: n/a Pain Goal: Remain pain free Pain Plan: n/a Tomorrow's Labs & Rationales: cbc - to follow H&H, BEP: Cr DVT/Prophylaxis: mechanical TAYLOR BEE,VINDO 04/26/17 1509: Attending MD Review Statement Attending Statement Attending MD Statement: examined this patient, discuss w/resident/PA/MECHANICAL OPERATOR, agreed w/resident/PA/MECHANICAL OPERATOR, reviewed EMR data (avail), discussed with nursing, discussed with case mgmt, amended to note Attending Assessment/Plan: Patient seen and examined. Resting comfortably and not in any acute distress this morning. He reports feeling better the no complaints of dizziness this morning. He reports ambulating freely with no issues. Orthostatic vitals were checked yesterday and was negative. He is maintaining saturation on room air. Lung examination is unchanged from yesterday. Output in the drain appears more serosanguineous today. He continues to drain about 30 mL twice daily from the tube. This morning he is noted to have an acute drop in hemoglobin confirmed on repeat labs. Denies any bright red blood per rectum. He doesn't have ct bleeding into the chest tube however elevated red cell count suggests chronic ongoing blood loss through the chest drain. It is possible that patient may have been more anemic on presentation always an elevated hemoglobin due to hemoconcentration. His anemia may have been the cause of these dizziness. Recommendations: -Transfuse 1 unit of packed red blood cells. Patient will require irradiated blood. -Obtain a stat chest x-ray PA lateral to rule out pneumothorax. -Check stool guaiac and obtain hemolytic workup. -At this point would recommend transfer to [facility] for further management due to the likelihood of bleeding coming from his chest. Awaiting callback from his surgeon to accept the patient. -Above plan of care has been discussed with the patient he verbalizes understanding.
[2017-04-26 10:35] LABS: ABSOLUTE BASOPHIL COUNT 0 /CUMM (0.0-0.2); ABSOLUTE EOSINOPHIL COUNT 0.1 /CUMM (0.0-0.7); ABSOLUTE GRANULOCYTE CT 1.8 /CUMM (1.4-6.5); ABSOLUTE LYMPH COUNT 0.8 /CUMM (1.2-3.4); ABSOLUTE MONOCYTE COUNT 0.4 /CUMM (0.10-0.60); BASOPHIL % 0.2 % (0.0-2.0); EOSINOPHIL % 1.8 % (0-5); GRANULOCYTE % 57.7 % (42.2-75.2); MEAN CORPUSCULAR HGB 28.1 PG (27.0-31.0); MEAN CORPUSCULAR HGB CONC 32.7 G/DL (33.0-37.0); MEAN PLATELET VOLUME 7.3 FL (7.4-10.4); PLATELET COUNT 238 /CUMM (130-400); RBC DISTRIBUTION WIDTH 19.6 % (11.5-14.5); WHITE BLOOD CELL COUNT 3.1 /CUMM (4.8-10.8)
--- NOTE | 2017-04-26 10:50 | PN- Pulmonary ---
JUNIE BEE,[facility] 04/26/17 1043: Subjective HPI/Critical Care Issues: Afebrile, hemodynamically stable, saturating well on room air. Patient is laying on bed looks relaxed and comfortable. No acute overnight events were reported. Patient denies any current active complaints. Objective Current Medications: Current Medications Sig/Howard Start time Last Medication Dose Route Stop Time Status Admin Aspirin 81 MG DAILY 04/25 1000 AC 04/25 PO 1138 Atorvastatin Calcium 40 MG 1700 04/25 1700 AC 04/25 PO 1543 Docusate Sodium 100 MG TID 04/25 1000 AC 04/25 PO 2100 Ferrous Sulfate 325 MG DAILY 04/25 1000 AC 04/25 PO 1138 Heparin Sodium 5,000 UNIT Q8 04/25 1619 AC 04/26 (Porcine) SC 0635 Levofloxacin 750 MG Q48 04/25 1000 AC 04/25 PO 1139 Loratadine 10 MG DAILY 04/25 1000 AC 04/25 PO 1139 Melatonin 5 MG ONCE ONE 04/26 0015 DC 04/26 PO 04/26 0016 0045 Meropenem 1 GM IQ8 04/25 0800 AC 04/26 IV 0843 Metoprolol Tartrate 12.5 MG BID 04/25 1000 AC 04/25 PO 2101 Mycophenolate Mofetil 500 MG BID 04/25 1000 AC 04/25 PO 2059 Nystatin 5 ML TID 04/25 0300 AC 04/25 PO 205 Omeprazole 20 MG DAILY AC 04/25 0700 AC 04/26 PO 0635 Prednisone 5 MG DAILY 04/25 1231 AC 04/25 PO 1352 Sodium Chloride 1,000 ML Q10H 04/25 0200 AC 04/26 IV 0059 Tacrolimus 3 MG 2100 04/25 2100 AC 04/25 PO 205 Tacrolimus 2.5 MG 0900 04/25 0900 AC 04/25 PO 1137 Trimethoprim/ 1 TAB 04/26 1000 AC Sulfamethoxazole PO Vital Signs & I&O Last 24 Hrs of Vitals and I&O: Vital Signs Date Time Temp Pulse Resp B/P B/P Pulse O2 O2 Flow FiO2 Mean Ox Delivery Rate 04/26 06 97.9 77 18 128/66 96 Nasal Cannula 04/25 2250 98.4 80 18 118/68 94 Room Air 04/25 210 80 118/68 04/25 1600 Room Air 04/25 1528 98.6 73 20 138/72 98 04/25 1139 80 120/70 Intake & Output 04/26 1600 04/26 0800 04/26 0000 Intake Total 1500 Output Total 650 52 Balance -650 1448 Intake, IV 800 Intake, Oral 700 Number 0 Bowel Movements Output, Chest 52 Tube Drainage Output, Urine 650 Exam General Appearance: no apparent distress, alert, awake, comfortable Head: atraumatic, normal appearance Neck: normal inspection, supple Respiratory: normal breath sounds, chest non-tender, no respiratory distress, lungs clear, left side drainage tube, left side stables with dry crusty secretions , [facility] surgical incesion Cardiovascular: regular rate/rhythm, Normal S1/S2 with no MRGs Abdomen: soft, non-tender, no organomegaly Extremities: normal inspection Results Last 24 Hrs of Lab Results: Laboratory Tests 04/26/17 0630: Anion Gap 8, Estimated GFR > 60, BUN/Creatinine Ratio 14.0, CBC w Diff Pending, WBC Pending, RBC Pending, Hgb Pending, Hct Pending, MCV Pending, MCH Pending, RDW Pending, Plt Count Pending, MPV Pending, PUBS MCHC Pending Impression/Plan Impression/Plan Impression/Plan: 66-year-old man with 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 This morning patient is afebrile, hemodynamically stable, saturating very well on room air, and maintaining a heart rate within normal limits. It was explained to the patient that in his situation it's better that he be managed at a facility with better lung transplant experience however he decided to stay at [facility]. CTA: 1. No evidence of pulmonary embolism. 2. Extensive fibrotic changes throughout the right lung without suspicious pulmonary nodules 3. Post transplant findings on the left side with a small effusion and underlying atelectasis as noted without evidence of focal infiltrate or other acute process. Plan: * Patient may benefit from transfer to a facility with a lung transplant experience * Follow up pending panculture * Continue antibiotic as per ID * DVT prophylaxis at all time * Full code MADELIN BEE,Shiloh MICHAEL 04/26/17 1246: Impression/Plan Impression/Plan Recommendations: * The patient has a tentative appointment in the next 4 days with a lung transplant service. We'll discharge as long as he is feeling improved. We'll continue to follow the recommendations of the transplant service. I discussed the case with housestaff and we'll follow recommendations as recommended above.
--- NOTE | 2017-04-26 10:57 | Patient Discharge Instructions ---
Discharge Instructions General Discharge Information You were seen/treated for: - Low grade fevers, dizziness, lethargy Special Instructions: Please follow up with your primary care physician in one week. Please follow up with your trasnplant surgeon in one week. Diet Recommended Diet: Regular Activity Activity Self Limited: Yes Acute Coronary Syndrome Inclusion Criteria At DC or during hospital stay patient has or had the following: ACS DIAGNOSIS No Discharge Core Measures Meds if any: Prescribed or Continued at Discharge Meds if any: NOT Prescribed or Continued at Discharge Congestive Heart Failure Inclusion Criteria At DC or during hospital stay patient has or had the following: CHF DIAGNOSIS No Discharge Core Measures Meds if any: Prescribed or Continued at Discharge Meds if any: NOT Prescribed or Continued at Discharge Cerebrovascular accident Inclusion Criteria At DC or during hospital stay patient has or had the following: CVA/TIA Diagnosis No Discharge Core Measures Meds if any: Prescribed or Continued at Discharge Meds if any: NOT Prescribed or Continued at Discharge Venous thromboembolism Inclusion Criteria VTE Diagnosis No VTE Type NONE VTE Confirmed by (Test) NONE Discharge Core Measures - Per Current guidelines, there needs to be overlap - treatment for the first 5 days of Warfarin therapy. - If discharged on Warfarin prior to 5 days of - overlap therapy, the patient will need to be - assessed for post discharge needs including - *Post discharge parental anticoagulation - *Warfarin and/or parental anticoagulation education - *Follow up date to check INR post discharge At least 5 days overlap therapy as Inpatient No Meds if any: Prescribed or Continued at Discharge Note: Overlap Therapy is Warfarin and Anticoagulant Meds if any: NOT Prescribed or Continued at Discharge
--- NOTE | 2017-04-26 10:57 | Discharge Summary ---
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 on 10/11/2016 at [facility] (currently on CellCept, Prograf and oral steroids), complicated by massive pulmonary embolism s/p surgical thrombectomy and IVC filter placement as well as surgical site infection with Mycobacterium Fortuitum (on Meropenem, and Levofloxacin, Bactrim for PCP prophylaxis, Valganciclovir), and development of persistent left-sided pleural effusion s/p decortication and chest tube placement, who presented to the ER with chief complaints of dizziness, lethargy and fevers going on for the past 2 weeks, with decreased by mouth intake, mild increase in cough and non-purulent sputum production with mild nausea going on for the past 3 days. Vitals at the time of admission blood pressure 167/94, respiratory rate of 18, tachycardic to 105, MAXIMUM TEMPERATURE 100.2 saturating 94% on room air. On physical exam he was A&O 3, cooperative, no acute distress, neck supple, JVD normal, no lymphadenopathy, mucosa moist, no focal neurological deficit, no dependent edema, no obvious skin rashes or inflammation except stage I sacral decubitus with no secondary infection. Cardiovascular exam revealed normal S1- S2, and respiratory exam pertinent for diffuse crackles on right side, clear on left, chest tube present on left side draining straw-colored fluid, maren in place, no local fluctuation crepitus or drainage, mild induration present. Abdomen was soft, NT, ND, bowel sounds present. Labs pertinent for H&H of 9.0/27.4, white blood cell count of 4900, platelet count of 305,000. His CMP was unremarkable. First set of troponin negative at less than 0.01, UA unremarkable. Head CT was done which showed no acute intracranial pathology. CTA chest was done which showed no evidence of pulmonary embolism, extensive fibrotic changes throughout the right lung without suspicious pulmonary nodules. Post transplant findings on the left side with a small effusion and underlying atelectasis as noted without evidence of focal infiltrate or other acute process. He was admitted to the general medicine floor and the following problems were addressed: #Dizziness and lethargy This was initially thought to be multifactorial, secondary to stroke, versus deconditioning from multiple co-morbidities versus being orthostatic positive versus an acute infectious process vs anemia. He had a head CT on admission which showed no evidence of an acute intracranial process including hemmorhagic stroke. Of note, his symtoms and clinical exam were not suggestive of TIA or stroke, and so MRI was deferred. He was hydrated with IVFs, and he subsequently remained orthostatic negative. Blood cultures and urine cultures were sent which showed no growth to date. #Low grade fevers Patient had a Tmax of 100.2F on admission. However, he remained afebrile since. Given his immunocompromised state, ID was consulted and he was seen by Dr. Rodrigeuz Borjas. He was continued on his home medications of Meropenem, Levofloxacin, Bactrim, and hsi had to bring in Vangalcyclovir. His pleural fluid was also sent for routine and AFB culture. #Acute blood loss anemia Patient dropped his H&H from 9.0 to 6.7 on his 2nd post-admission day. He denied any bleeding from his rectum, and did not have any ct bleeeding in his chest tube. This was concerning given the fact that he had sero-sangiunios discharge in his drain which averaged about 60mls/24 hrs, with pleural fluid cytology revealing . A CXR was repeated to ensure he was not bleeding in his pleural cavity, which remained unchnaged. Dr. Naylor was also contacted and he was not overly concerned about the drop in the patient's Hb, and stated taht his last Hb upon discharge 2 weeks ago was 7.6. He recommended we transfuse him with blood. It is very much possible that he was hemoconcentrated to begin with. He was transfused with 1unit of PRBC (irradiated blood). Follow up CBC post transfusion remained stable at 7.7/23.1. #IPF s/p left lung transplant He was seen by his primary meat curer Dr. Esposito. He was continued on Tacrolimus, Cellcept, prednisone 5mg daily. Of note he was on Tacrolimus 2.5mg in AM, and 3.0mg at bedtime. A tacrolimus level was sent which was low 2.4, and so it was increased to 3.5mg BID PO as per Dr. Naylor, patient's primary transplant surgeon at [facility]. He should have repeat levelsfo Tacrolims in 2 days 04/28/17, and should follow up with Dr. Friedman on Monday05/01/17. #CAD s/p stent Patient was continued on ASA 81mg daily, Lipitor 40mg daily, Lopressor 12.5mg BID PO. #GERD He was continued on Prilosec 20mg daily. #Left sided pneumothorax and pleural effusion s/p pleurax catheter placement He had a left sided pleurax catheter that drained about 30mls/12 hrs. CXR done in the hospital did not reveal any pneumothorax. Speaking with Dr. Naylor revealed taht he planned on pulling his chest tube if the pneumothorax had resolved. The decision to pull it while in hospital was held, and will be deferred to Dr. Naylor with whom the patient has an appointment for May 01, 2017. Complications: Please see above Allergies: Coded Allergies: adhesive tape (RASH - PAPER TAPE ONLY 04/24/17) Significant Procedures: 1 PRBC transfusion SERVICE DATE: 04/26/17 EXAM TYPE: RAD - XRY-CHEST XRAY, PA AND LATERAL FINDINGS: There is a right upper extremity PICC with its distal tip located within the lower SVC. Recent changes of a left thoracotomy are demonstrated. The left lung is well expanded. No pneumothorax. Mild pleural thickening along the lateral chest wall is noted. Extensive interstitial fibrotic changes within the right lung are redemonstrated. The cardiac silhouette and upper mediastinal contours are unremarkable. Chronic changes of a median sternotomy are noted. No acute osseous finding. The position of the thoracostomy tube with its tip located at the fifth intercostal space is noted. IMPRESSION: No substantial change from prior imaging. The left lung remains well expanded and there is no pneumothorax. Pleural-based thickening along the lateral aspect of the chest wall is noted. Extensive interstitial fibrosis the right lung is redemonstrated. SERVICE DATE: 04/24/17-1909 EXAM TYPE: CAT - CTA CHEST-PULMONARY EMBOLISM FINDINGS: QUALITY OF STUDY/CONTRAST BOLUS: Satisfactory PULMONARY ARTERIES: No central or segmental pulmonary emboli. THORACIC AORTA: Mild proximal aortic ectasia measuring 3.7 cm AP dimension. No discrete aneurysm or dissection. LUNG: There are extensive fibrotic changes throughout the majority of the right upper, middle, and to a lesser degree lower lobes largely unchanged to the exam performed approximately one year ago. The development of suspicious-appearing pulmonary nodules is not identified. What likely represents the transplanted left lung demonstrates findings most consistent with scattered areas of subsegmental atelectasis in the lingula along with posterior and medial basal segments of the left lower lobe. Previous exam was pretransplant so these regions cannot be compared. Left upper lobe is fairly well-distended with the exception of a focus of discoid atelectasis along the major fissure. PLEURA: Trace left-sided pleural effusion somewhat loculated posteriorly and medially. MEDIASTINUM: Scattered mildly prominent mediastinal lymph nodes, the largest subcarinal measuring 1.1 cm short axis dimension likely reactive. No evidence of septal bowing or right heart strain. CHEST WALL/AXILLA: No axillary or internal mammary lymphadenopathy. OSSEOUS STRUCTURES: No aggressive-appearing osseous lesions. UPPER ABDOMEN: Unremarkable. No reflux of contrast into the hepatic veins to suggest elevated right heart pressures. IMPRESSION: 1. No evidence of pulmonary embolism. 2. Extensive fibrotic changes throughout the right lung without suspicious pulmonary nodules. 3. Post transplant findings on the left side with a small effusion and underlying atelectasis as noted without evidence of focal infiltrate or other acute process. VTE: Negative for pulmonary embolism. SERVICE DATE: 04/24/17 EXAM TYPE: CAT - CT HEAD WO IV CONTRAST FINDINGS: There is no evidence of acute intracranial hemorrhage or territorial infarction. No abnormal mass effect or midline shift is seen. Pittman to white matter differentiation is well preserved. No extra-axial fluid collections are identified. The ventricles are normal in size. There is no abnormal attenuation within the brain parenchyma. The osseous structures and soft tissues are normal. A small amount of layering fluid is seen in the right sphenoid sinus. IMPRESSION: No acute intracranial pathology. SERVICE DATE: 04/25/17 EXAM TYPE: RAD - XRY-PORTABLE CHEST XRAY FINDINGS: Skin maren of the left lower, anterior chest, with drainage tube in place. The transplanted left lung is well aerated. Again noted is mild pleural thickening of the left [id number] hemithorax. The right lung is hypoinflated and right diaphragm elevated. There is diffuse interstitial opacity with subtle lucencies from honeycombing in the right lung. The right arm peripherally inserted catheter is in satisfactory position with catheter tip located at the junction of the superior vena cava and right atrium. Cardiac silhouette is normal in size. The sternotomy wires are intact. No acute osseous abnormality. IMPRESSION: The peripherally inserted catheter is in satisfactory position with its tip located at the cavoatrial junction. Pertinent Lab Results: Laboratory Tests 04/26 04/26 1335 1220 Chemistry Total Bilirubin (0.2 - 1.3 mg/dL) 0.3 Direct Bilirubin (< 0.4 mg/dL) 0.2 AST (17 - 59 U/L) 20 ALT (21 - 72 U/L) 26 Alkaline Phosphatase (< 127 U/L) 68 Lactate Dehydrogenase (313 - 618 U/L) 752 H Total Protein (6.3 - 8.2 g/dL) 4.1 L Albumin (3.5 - 5.0 g/dL) 2.5 L Hematology CBC w Diff NO MAN DIFF REQ WBC (4.8 - 10.8 /CUMM) 2.9 L RBC (4.70 - 6.10 /CUMM) 2.35 L Hgb (14.0 - 18.0 G/DL) 6.7 *L Hct (42 - 52 %) 20.2 L MCV (80.0 - 94.0 FL) 86.0 MCH (27.0 - 31.0 PG) 28.7 RDW (11.5 - 14.5 %) 19.5 H Plt Count (130 - 400 /CUMM) 230 MPV (7.4 - 10.4 FL) 6.7 L Gran % (42.2 - 75.2 %) 56.2 Lymphocytes % (20.5 - 51.1 %) 25.1 Monocytes % (1.7 - 9.3 %) 15.2 H Eosinophils % (0 - 5 %) 3.0 Basophils % (0.0 - 2.0 %) 0.5 Absolute Granulocytes (1.4 - 6.5 /CUMM) 1.6 Absolute Lymphocytes (1.2 - 3.4 /CUMM) 0.7 L Absolute Monocytes (0.10 - 0.60 /CUMM) 0.4 Absolute Eosinophils (0.0 - 0.7 /CUMM) 0.1 Absolute Basophils (0.0 - 0.2 /CUMM) 0 PUBS MCHC (33.0 - 37.0 G/DL) 33.3 Retic Count (0.5 - 2.0 %) 2.13 H Haptoglobin Pending 04/26 0630 Chemistry Sodium (137 - 145 mmol/L) 140 Potassium (3.5 - 5.1 mmol/L) 4.1 Chloride (98 - 107 mmol/L) 109 H Carbon Dioxide (22 - 30 mmol/L) 24 Anion Gap (5 - 16) 8 BUN (9 - 20 mg/dL) 14 Creatinine (0.7 - 1.2 mg/dL) 1.0 Estimated GFR (>60 ml/min) > 60 BUN/Creatinine Ratio (7 - 25 %) 14.0 Hematology CBC w Diff NO MAN DIFF REQ WBC (4.8 - 10.8 /CUMM) 3.1 L RBC (4.70 - 6.10 /CUMM) 2.33 L Hgb (14.0 - 18.0 G/DL) 6.6 *L Hct (42 - 52 %) 20.1 L MCV (80.0 - 94.0 FL) 86.0 MCH (27.0 - 31.0 PG) 28.1 RDW (11.5 - 14.5 %) 19.6 H Plt Count (130 - 400 /CUMM) 238 MPV (7.4 - 10.4 FL) 7.3 L Gran % (42.2 - 75.2 %) 57.7 Lymphocytes % (20.5 - 51.1 %) 26.3 Monocytes % (1.7 - 9.3 %) 14.0 H Eosinophils % (0 - 5 %) 1.8 Basophils % (0.0 - 2.0 %) 0.2 Absolute Granulocytes (1.4 - 6.5 /CUMM) 1.8 Absolute Lymphocytes (1.2 - 3.4 /CUMM) 0.8 L Absolute Monocytes (0.10 - 0.60 /CUMM) 0.4 Absolute Eosinophils (0.0 - 0.7 /CUMM) 0.1 Absolute Basophils (0.0 - 0.2 /CUMM) 0 PUBS MCHC (33.0 - 37.0 G/DL) 32.7 L Disposition Summary Disposition Principal Diagnosis: Fever of unknown origin Lethargy, dizziness and fatigue Acute blood losss anemia Additional Diagnosis: Interstitial pulmonary fibrosis Left lung transplant at [facility] in 2016 PE s/p IVC filter Hypertension Hyperlipidemia Anemia GERD Decubitus wound Discharge Disposition: home or self care Discharge Instructions General Discharge Information Code Status: Full Code Patient's Diet: Regular Patient's Activity: As tolerated Follow-Up Instructions/Appts: Please follow up with your primary care phsyician in one week. Please follow up with your transplant doctor on Monday05/01/17. Please have a repeat Tacrolimus level on 04/29/17. Medications at Discharge Discharge Medications: Stop taking the following medications: Tacrolimus (Prograf) 1 MG CAPSULE ORAL 2100 Tacrolimus (Prograf) 1 MG CAPSULE ORAL 0900 Qty = 30 Tacrolimus (Prograf) 0.5 MG CAPSULE ORAL 0900 Qty = 30 Continue taking these medications: Atorvastatin Calcium (Lipitor) 40 MG TABLET 1 Tablet ORAL DAILY Qty = 30 Comments: Last Taken:04/27/17 Time: 4 PM Aspirin (Aspirin*) 81 MG TAB.CHEW 1 Tablet ORAL DAILY Days = 30 Comments: Last Taken:04/28/17 Time:10:25 AM Sulfamethoxazole/Trimethoprim (Bactrim 400-80 MG Tablet) 400 MG-80 MG TABLET 1 Tablet ORAL MONDAY, MONDAY AND MONDAY Days = 30 Comments: Last Taken: 04/28/17 Time:10:25 AM Alendronate Sodium (Alendronate Sodium) 70 MG TABLET 1 Tablet ORAL EVERY MONDAY Instructions: in the morning, at least 30 minutes before the first food, beverage, or medication of the day Comments: NOT GIVEN IN HOSPITAL Mycophenolate Mofetil (Cellcept) 500 MG TABLET 1 Tablet ORAL TWICE DAILY Comments: Last Taken:04/28/17 Time:10:25 AM Calcium Citrate/Vitamin D3 (Citracal + D Maximum Caplet) 315 MG-250 UNIT TABLET 1 Tablet ORAL THREE TIMES DAILY Comments: NOT GIVEN IN HOSPITAL Docusate Sodium (Colace) 100 MG CAPSULE 1 Capsule ORAL THREE TIMES DAILY Comments: REFUSED Ferrous Fumarate (Ferretts) 325 MG (106 MG) TABLET 1 Tablet ORAL DAILY Comments: Last Taken:04/26/17 Time:10:45 AM REFUSED 04/28/17 Levofloxacin (Levofloxacin) 750 MG TABLET 1 Tablet ORAL Q48H Qty = 30 Comments: Last Taken:04/27/17 Time:11:10 AM Magnesium Oxide (Magnesium) 400 MG CAPSULE 1 Capsule ORAL TWICE DAILY Comments: NOT GIVEN IN HOSPITAL Metoprolol Tartrate (Metoprolol Tartrate) 25 MG TABLET 12.5 Milligram ORAL TWICE DAILY Qty = 30 Comments: Last Taken:04/28/17 Time:10:26 AM Heparin Sodium,Porcine/Pf (Heparin Flush 10 Units/Ml Syr) 10 UNIT/ML SYRINGE 5 Milliliters INTRAVEN As Directed Nystatin (Nystatin) 100,000 UNIT/ML ORAL.SUSP 5 Milliliters ORAL THREE TIMES DAILY Qty = 60 Comments: Last Taken:04/28/17 Time:10:25 AM Omeprazole (Omeprazole) 20 MG TABLET.DR 1 Tablet ORAL DAILY Comments: Last Taken:04/28/17 Time:06:50 AM Ondansetron HCl (Zofran) 4 MG TABLET 1 Tablet ORAL TWICE DAILY Comments: Last Taken:04/28/17 Time:8:30 AM Prednisone (Prednisone) 5 MG TABLET 1 Tablet ORAL DAILY Comments: Last Taken:04/28/17 Time:10:25 AM Valganciclovir Hydrochloride (Valcyte) 450 MG TABLET 1 Tablet ORAL Q48H Comments: NOT GIVEN IN HOSPITAL Cetirizine HCl (Zyrtec) 10 MG TABLET 1 Tablet ORAL DAILY Comments: CLARITIN GIVEN IN HOSPITAL 04/28/17 @ 10:25 AM Start taking the following new medications: Meropenem (Meropenem) 1 GRAM VIAL 1 Gram INTRAVEN IV EVERY 8 HOURS Qty = 90 No Refills Comments: Last Taken:04/28/17 Time:8:25 AM Tacrolimus (Prograf) 0.5 MG CAPSULE 7 Capsule ORAL TWICE DAILY Qty = 120 No Refills Comments: Last Taken:04/28/17 Time:10:25 AM Copies To: CAMDEN MOODY DO, MD,YESI RAPP; MADELIN BEE,Shiloh MICHAEL Attending MD Review Statement Documenting Attending: VINOD VAZQUEZ M.D
[2017-04-26 11:18] LABS: HEMATOCRIT 20.1 % (42-52); RED BLOOD CELL CT 2.33 /CUMM (4.70-6.10)
--- NOTE | 2017-04-26 12:01 | NUR ---
PATIENT H/H REPORTED CRITICAL VALUE 6.6 AND 20.1, DR LUJAN NOTIFIED, WILL D/C NORMAL SALINE INFUSION AND ORDER REPEAT CBC, WILL AWAIT RESULTS OF THIS TEST, PRIOR TO DISCHARGE.
[2017-04-26 12:37] LABS: ABSOLUTE BASOPHIL COUNT 0 /CUMM (0.0-0.2); ABSOLUTE EOSINOPHIL COUNT 0.1 /CUMM (0.0-0.7); ABSOLUTE LYMPH COUNT 0.7 /CUMM (1.2-3.4)
[2017-04-26 12:39] LABS: ABSOLUTE GRANULOCYTE CT 1.6 /CUMM (1.4-6.5); ABSOLUTE MONOCYTE COUNT 0.4 /CUMM (0.10-0.60); BASOPHIL % 0.5 % (0.0-2.0); GRANULOCYTE % 56.2 % (42.2-75.2); MEAN CORPUSCULAR HGB 28.7 PG (27.0-31.0); MEAN CORPUSCULAR HGB CONC 33.3 G/DL (33.0-37.0); MEAN PLATELET VOLUME 6.7 FL (7.4-10.4); PLATELET COUNT 230 /CUMM (130-400); RBC DISTRIBUTION WIDTH 19.5 % (11.5-14.5); RED BLOOD CELL CT 2.35 /CUMM (4.70-6.10); WHITE BLOOD CELL COUNT 2.9 /CUMM (4.8-10.8)
[2017-04-26 12:44] LABS: HEMATOCRIT 20.2 % (42-52)
--- NOTE | 2017-04-26 13:09 | NUR ---
CRITICAL LAB VALUE FROM LAB RECEIVED FOR HGB AND HCT @ 6.7/20.2. RESULTS ALSO CALLED TO RESIDENT JANETT Shoemaker NEW ORDERS FOR OTHER BLOOD WORK GIVEN.
--- NOTE | 2017-04-26 13:11 | NUR ---
PATIENT WITH DRAIN IN CHEST, DRAINED 20 ML OF BROWN/BLOODY DRAINAGE, STAPLE LINE TO LEFT CHEST, CDI, NO REDDNESS. PICC LINE IN PLACE, POSITIVE BLOOD DRAINAGE, NO ISSUES NOTED.
--- NOTE | 2017-04-26 13:24 | PN- Infect Dx ---
Subjective Subjective: Afebrile on steroids. He feels well with no complaints Objective Last 24 Hrs of Vital Signs/I&O Vital Signs Date Time Temp Pulse Resp B/P B/P Pulse O2 O2 Flow FiO2 Mean Ox Delivery Rate 04/26 1046 90 110/70 04/26 0600 97.9 77 18 128/66 96 Nasal Cannula 04/25 2250 98.4 80 18 118/68 94 Room Air 04/25 2101 80 118/68 04/25 1600 Room Air 04/25 1528 98.6 73 20 138/72 98 Intake & Output 04/26 1600 04/26 0800 04/26 0000 Intake Total 1500 Output Total 650 52 Balance -650 1448 Intake, IV 800 Intake, Oral 700 Number 0 Bowel Movements Output, Chest 52 Tube Drainage Output, Urine 650 Physical Exam Other Physical Findings: He appears comfortable in no acute distress Chest left chest incision clean, with maren intact; left pleural catheter with serosanguineous drainage, with 80 mL output recorded yesterday Lungs bibasilar crackles Heart regular rhythm with no murmur Results Last 24 Hours of Lab Results: Laboratory Tests 04/26 04/26 1220 0630 Chemistry Sodium (137 - 145 mmol/L) 140 Potassium (3.5 - 5.1 mmol/L) 4.1 Chloride (98 - 107 mmol/L) 109 H Carbon Dioxide (22 - 30 mmol/L) 24 Anion Gap (5 - 16) 8 BUN (9 - 20 mg/dL) 14 Creatinine (0.7 - 1.2 mg/dL) 1.0 Estimated GFR (>60 ml/min) > 60 BUN/Creatinine Ratio (7 - 25 %) 14.0 Hematology CBC w Diff NO MAN DIFF REQ NO MAN DIFF REQ WBC (4.8 - 10.8 /CUMM) 2.9 L 3.1 L RBC (4.70 - 6.10 /CUMM) 2.35 L 2.33 L Hgb (14.0 - 18.0 G/DL) 6.7 *L 6.6 *L Hct (42 - 52 %) 20.2 L 20.1 L MCV (80.0 - 94.0 FL) 86.0 86.0 MCH (27.0 - 31.0 PG) 28.7 28.1 RDW (11.5 - 14.5 %) 19.5 H 19.6 H Plt Count (130 - 400 /CUMM) 230 238 MPV (7.4 - 10.4 FL) 6.7 L 7.3 L Gran % (42.2 - 75.2 %) 56.2 57.7 Lymphocytes % (20.5 - 51.1 %) 25.1 26.3 Monocytes % (1.7 - 9.3 %) 15.2 H 14.0 H Eosinophils % (0 - 5 %) 3.0 1.8 Basophils % (0.0 - 2.0 %) 0.5 0.2 Absolute Granulocytes (1.4 - 6.5 /CUMM) 1.6 1.8 Absolute Lymphocytes (1.2 - 3.4 /CUMM) 0.7 L 0.8 L Absolute Monocytes (0.10 - 0.60 /CUMM) 0.4 0.4 Absolute Eosinophils (0.0 - 0.7 /CUMM) 0.1 0.1 Absolute Basophils (0.0 - 0.2 /CUMM) 0 0 PUBS MCHC (33.0 - 37.0 G/DL) 33.3 32.7 L Last 24 Hours of Levon Results: Blood cultures 2 April 24 negative Urine culture April 24 negative Assessment/Plan Impression: Clinically improved with temperatures remaining normal (on steroids) but with a marked decrease in his H&H, of unclear etiology, with possibilities including medications, blood loss and hemolysis. He has been hydrated, which may explain some of the decrease, though he was already anemic on admission. His white blood cell count is also low and decreased from yesterday and may also be medication induced. 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 His pleural fluid white blood cell count was elevated, raising concern for infection, possibly related to the pleural catheter or to his mycobacterial surgical site infection. Suggestion: 1. Further evaluation of his anemia and leukopenia, including reevaluation of all his medications 2. Would send pleural fluid for routine and AFB culture 3. Continue Meropenem, Levaquin and Bactrim pending above
[2017-04-26 13:53] VITALS: BP 125/72
--- NOTE | 2017-04-26 15:44 | RADIOLOGY REPORT ---
EXAMINATION: XR CHEST CLINICAL INFORMATION: Follow-up pleural effusion. COMPARISON: CT angiogram of the chest 04/24/2017. TECHNIQUE: 2 views of the chest were obtained. FINDINGS: There is a right upper extremity PICC with its distal tip located within the lower SVC. Recent changes of a left thoracotomy are demonstrated. The left lung is well expanded. No pneumothorax. Mild pleural thickening along the lateral chest wall is noted. Extensive interstitial fibrotic changes within the right lung are redemonstrated. The cardiac silhouette and upper mediastinal contours are unremarkable. Chronic changes of a median sternotomy are noted. No acute osseous finding. The position of the thoracostomy tube with its tip located at the fifth intercostal space is noted. IMPRESSION: No substantial change from prior imaging. The left lung remains well expanded and there is no pneumothorax. Pleural-based thickening along the lateral aspect of the chest wall is noted. Extensive interstitial fibrosis the right lung is redemonstrated.
[2017-04-26] MEDS ORDERED: PROGRAF0.5 MG PO (16:05)
[2017-04-26 22:26] VITALS: BP 124/72
--- NOTE | 2017-04-27 | NUR ---
PATIENT ALERT AND ORIENTED X 3. 1 UNIT OF LEUKOCYTE POOR BLOOD TRANSFUSED. PATIENT TOLERATED TRANSFUSION WELL. NO REACTION NOTED. CHEST TUBE DRAINED OF 20 ML OF PLEURAL FLIUD. SPECIMEN ALSO SENT TO LAB. REPORT GIVEN TO ON COMING NURSE.
[2017-04-27 06:00] VITALS: BP 130/74
--- NOTE | 2017-04-27 07:22 | PN- Housestaff ---
JANETT LUJAN 04/27/17 0721: Subjective Follow-up For: Dizziness, lethargy and fatigue Fever of unknown origin IPF s/p L lung transplant on immunosuppresants. Acute Complaints: no complaints Subjective: Patient seen and examines at bedside. He received a unit of PRBC last night. He remains afebrile. Deneis chest pain, shortness of breath, palpitations, abdominal pain, alterations in bowel movements. Review of Systems Constitutional: Denies: chills, malaise, weakness. EENTM: Denies: visual changes. Cardiovascular: Denies: chest pain, orthopena, palpitations, peripheral edema. Respiratory: Denies: cough, orthopnea, short of breath, wheezing. Gastrointestinal: Denies: abdominal pain, constipation, diarrhea, nausea, vomiting. Genitourinary: Reports: see HPI. Musculoskeletal: Reports: see HPI. Neurological/Psychological: Denies: headache, numbness, tingling, tremors. Objective Last 24 Hrs of Vital Signs/I&O Vital Signs Date Time Temp Pulse Resp B/P B/P Pulse O2 O2 Flow FiO2 Mean Ox Delivery Rate 04/27 0600 98.4 85 18 130/74 95 Room Air 04/26 2226 98.2 83 19 124/72 95 Nasal Cannula 04/26 2113 98.2 83 18 124/72 04/26 1353 98.2 73 20 125/72 92 04/26 1046 90 110/70 Intake & Output 04/27 0800 04/27 0000 04/26 1600 Intake Total 480 980 Output Total 400 Balance 80 980 Intake, IV 500 Intake, Oral 480 480 Output, Urine 400 Physical Exam General Appearance: Alert, Oriented X3, Cooperative, No Acute Distress HEENT: Atraumatic, PERRLA, EOMI, Mucous Membr. moist/pink Neck: Supple, No JVD, No thryomegaly, +2 Carotid Pulse wo Bruit, No LAD Cardiovascular: Regular Rate, Normal S1, Normal S2 Lungs: Clear to Auscultation, Normal Air Movement Abdomen: Normal Bowel Sounds, Soft, No Tenderness Neurological: Normal Speech, Strength at 5/5 X4 Ext, Normal Tone, Sensation Intact, Cranial Nerves 3-12 NL, Reflexes 2+ Extremities: No Clubbing, No Cyanosis, No Edema, Normal Pulses, No Tenderness/ Swelling Vascular: Normal Pulses, Pulses Symmetrical Current Medications: Current Medications Sig/Howard Start time Last Medication Dose Route Stop Time Status Admin Aspirin 81 MG DAILY 04/25 1000 AC 04/26 PO 1047 Atorvastatin Calcium 40 MG 1700 04/25 1700 AC 04/26 PO 1649 Docusate Sodium 100 MG TID 04/25 1000 AC 04/26 PO 1650 Ferrous Sulfate 325 MG DAILY 04/25 1000 AC 04/26 PO 1046 Heparin Sodium 5,000 UNIT Q8 04/25 1619 DC 04/26 (Porcine) SC 0635 Levofloxacin 750 MG Q48 04/25 1000 AC 04/25 PO 1139 Loratadine 10 MG DAILY 04/25 1000 AC 04/26 PO 1046 Meropenem 1 GM IQ8 04/25 0800 AC 04/27 IV 0130 Metoprolol Tartrate 12.5 MG BID 04/25 1000 AC 04/26 PO 2113 Mycophenolate Mofetil 500 MG BID 04/25 1000 AC 04/26 PO 2113 Nystatin 5 ML TID 04/25 0300 AC 04/26 PO 2113 Omeprazole 20 MG DAILY AC 04/25 0700 AC 04/27 PO 0622 Patient Medication 1 ED .STK-MED ONE 04/26 1430 AR Teaching ED 04/26 1431 Prednisone 5 MG DAILY 04/25 1231 AC 04/26 PO 1047 Ramelteon 8 MG ONCE ONE 04/26 2215 DC 04/26 PO 04/26 2216 2300 Sodium Chloride 1,000 ML Q10H 04/25 0200 DC 04/26 IV 0059 Tacrolimus 3.5 MG BID 04/26 2200 AC 04/26 PO 211 Tacrolimus 3 MG 2100 04/25 2100 DC 04/25 PO 205 Tacrolimus 2.5 MG 0900 04/25 0900 DC 04/26 PO 1047 Trimethoprim/ 1 TAB 04/26 1000 AC 04/26 Sulfamethoxazole PO 1047 Last 24 Hrs of Lab/Levon Results Last 24 Hrs of Labs/Mics: Laboratory Tests 04/27/17 0535: Anion Gap 8, Estimated GFR > 60, BUN/Creatinine Ratio 11.8, CBC w Diff Pending, WBC Pending, RBC Pending, Hgb Pending, Hct Pending, MCV Pending, MCH Pending, RDW Pending, Plt Count Pending, MPV Pending, PUBS MCHC Pending 04/27/17 0000: CBC w Diff Cancelled, WBC Cancelled, RBC Cancelled, Hgb Cancelled, Hct Cancelled , MCV Cancelled, MCH Cancelled, RDW Cancelled, Plt Count Cancelled, MPV Cancelled, PUBS MCHC Cancelled 04/26/17 1600: CBC w Diff Cancelled, WBC Cancelled, RBC Cancelled, Hgb Cancelled, Hct Cancelled , MCV Cancelled, MCH Cancelled, RDW Cancelled, Plt Count Cancelled, MPV Cancelled, PUBS MCHC Cancelled 04/26/17 1335: Total Bilirubin 0.3, Direct Bilirubin 0.2, AST 20, ALT 26, Alkaline Phosphatase 68, Lactate Dehydrogenase 752 H, Total Protein 4.1 L, Albumin 2.5 L, Haptoglobin Pending 04/26/17 1220: CBC w Diff NO MAN DIFF REQ, RBC 2.35 L, MCV 86.0, MCH 28.7, RDW 19.5 H, MPV 6.7 L, Gran % 56.2, Lymphocytes % 25.1, Monocytes % 15.2 H, Eosinophils % 3.0, Basophils % 0.5, Absolute Granulocytes 1.6, Absolute Lymphocytes 0.7 L, Absolute Monocytes 0.4, Absolute Eosinophils 0.1, Absolute Basophils 0, PUBS MCHC 33.3, Retic Count 2.13 H Microbiology 04/26 2304 BODY FLUID: AFB Culture with PCR Identification - RECD 04/26 2304 BODY FLUID: AFB Smear Concentration - RECD 04/26 2304 BODY FLUID: Body Fluid Culture - RECD 04/26 2304 BODY FLUID: Gram Stain - RECD Assessment/Plan Assessment: 66-year-old male with a PMH of CAD s/p stents, interstitial pulmonary fibrosis status post left lung transplant on 10/11/2016 at [facility] (currently on CellCept, Prograf and oral steroids), complicated by massive pulmonary embolism s/p surgical thrombectomy and IVC filter placement as well as surgical site infection with Mycobacterium Fortuitum (on Meropenem, and Levofloxacin, Bactrim for PCP prophylaxis, Valganciclovir), and development of persistent left-sided pleural effusion s/p decortication and chest tube placement, who presented to the ER with chief complaints of dizziness, lethargy and fevers going on for the past 2 weeks, with decreased by mouth intake, mild increase in cough and non-purulent sputum production with mild nausea going on for the past 3 days. Vitals at the time of admission blood pressure 167/94, respiratory rate of 18, tachycardic to 105, MAXIMUM TEMPERATURE 100.2 saturating 94% on room air. On physical exam he was A&O 3, cooperative, no acute distress, neck supple, JVD normal, no lymphadenopathy, mucosa moist, no focal neurological deficit, no dependent edema, no obvious skin rashes or inflammation except stage I sacral decubitus with no secondary infection. Cardiovascular exam revealed normal S1- S2, and respiratory exam pertinent for diffuse crackles on right side, clear on left, chest tube present on left side draining straw-colored fluid, maren in place, no local fluctuation crepitus or drainage, mild induration present. Abdomen was soft, NT, ND, bowel sounds present. Labs pertinent for H&H of 9.0/27.4, white blood cell count of 4900, platelet count of 305,000. His CMP was unremarkable. First set of troponin negative at less than 0.01, UA unremarkable. Head CT was done which showed no acute intracranial pathology. CTA chest was done which showed no evidence of pulmonary embolism, extensive fibrotic changes throughout the right lung without suspicious pulmonary nodules. Post transplant findings on the left side with a small effusion and underlying atelectasis as noted without evidence of focal infiltrate or other acute process. He was admitted to the general medicine floor and the following problems were addressed: #Dizziness and lethargy Resolved. 2/2 decreased PO intake. #Low grade fevers -Patient had a Tmax of 100.2F on admission. - However, he remained afebrile since. Continue home medications of Meropenem, Levofloxacin, Bactrim, - Reiteriated for his had to bring in Vangalcyclovir. - F/U pleural fluid for routine and AFB culture. - ID on board, follow recs. #Acute blood loss anemia - H&H dropped from 9.0 to 6.7 on his 2nd post-admission day. -2/2 hemolytic anemia, vs bleeding in pleural space - Workup not cw hemolysis. - No S&sof active bleeding including bleeding from his rectum and/orfrank bleeeding in his chest tube. - CXR done yesterady did not reveal any wrsening of effusion and that he was not bleeding in his pleural cavity. - Will monitor his H&H over the next 24 hrs including a CBC 24pm today and plan on discharging tomorrow. #IPF s/p left lung transplant - Continue on Tacrolimus, Cellcept 500mg PO BID, Prednisone 5mg daily. - Increase Tacrolimus to 3.5mg BID PO as per Dr. Naylor, patient's primary transplant surgeon at [facility]. - Repeat levelsfo Tacrolims in 2 days 04/28/17, and should follow up with Dr. Friedman on Monday05/01/17. #CAD s/p stent Continue ASA 81mg daily, Lipitor 40mg daily, Lopressor 12.5mg BID PO. #GERD Continue Prilosec 20mg daily. #Left sided pneumothorax and pleural effusion s/p pleurax catheter placement - He had a left sided pleurax catheter that drained about 30mls/12 hrs. CXR done in the hospital did not reveal any pneumothorax. - Speaking with Dr. Naylor revealed taht he planned on pulling his chest tube if the pneumothorax had resolved. Decision to pull out the chest tube drain will be deferred to Dr. Naylor with whom the patient has an appointment for May 01, 2017. -DVT prophylaxis -- On ALPs given ABLA. - Code Status - Full Code Problem List: 1. Fatigue Pain Ratin Pain Location: n/a Pain Goal: Remain pain free Pain Plan: none ordered as it may mask fevers Tomorrow's Labs & Rationales: cbc - fpollow h&h Consulting Request: Consulting Specialty: Pulmonary Disease TAYLOR BEE,[facility] 04/27/17 1036: Attending MD Review Statement Attending Statement Attending MD Statement: examined this patient, discuss w/resident/PA/CAMPGROUND CARETAKER, agreed w/resident/PA/CAMPGROUND CARETAKER, reviewed EMR data (avail), discussed with nursing, discussed with case mgmt, amended to note Attending Assessment/Plan: Patient seen and examined. Resting comfortably and not in acute distress. No acute events overnight. Chest x-ray done yesterday showed no evidence of effusion or hemothorax. He has had no rectal bleeding overnight. He continues to have small output from his chest drain and fluid remains serosanguineous but not bloody. His hemoglobin level did improve with transfusion overnight. Today his hemoglobin 7.7. I did have an extensive, sedation with his pulmonary surgeon yesterday. According to him when patient was discharged from the hospital his hemoglobin level was 7.8. His anemia is multifactorial secondary to acute blood loss at the time of surgery, anemia of chronic illness and his current immunosuppressive therapy. His recommendation was for conservative management at present. Currently reports no added benefit from being transferred acutely to [facility]. We'll monitor the patient's hemoglobin level overnight. He remained stable he may be discharged home tomorrow. Patient is in agreement with this plan. He is very reluctant to be transferred out to [facility] for admission and to be away from his family. He does understand that if he should develop an acute pathology that cannot be easily addressed here at [facility] he will be transferred to [facility]. He remains afebrile and hemodynamically stable. Awaiting culture report from the pleural fluid.
[2017-04-27 09:07] LABS: ABSOLUTE BASOPHIL COUNT 0 /CUMM (0.0-0.2); ABSOLUTE EOSINOPHIL COUNT 0.1 /CUMM (0.0-0.7); ABSOLUTE GRANULOCYTE CT 1.4 /CUMM (1.4-6.5); ABSOLUTE LYMPH COUNT 0.9 /CUMM (1.2-3.4); ABSOLUTE MONOCYTE COUNT 0.5 /CUMM (0.10-0.60); BASOPHIL % 0.1 % (0.0-2.0); EOSINOPHIL % 3.3 % (0-5); GRANULOCYTE % 48.3 % (42.2-75.2); HEMATOCRIT 23.4 % (42-52); MEAN CORPUSCULAR HGB 28.4 PG (27.0-31.0); MEAN CORPUSCULAR VOLUME 85.9 FL (80.0-94.0); MEAN PLATELET VOLUME 7.2 FL (7.4-10.4); PLATELET COUNT 253 /CUMM (130-400); RBC DISTRIBUTION WIDTH 19.9 % (11.5-14.5); RED BLOOD CELL CT 2.73 /CUMM (4.70-6.10); WHITE BLOOD CELL COUNT 2.9 /CUMM (4.8-10.8)
--- NOTE | 2017-04-27 11:51 | PN- Pulmonary ---
Subjective HPI/Critical Care Issues: Afebrile, hemodynamically stable, saturating well on room air. Patient is laying in bed looks relaxed and comfortable, he is denying any current active complaints. No acute overnight events were reported. Hemoglobin dropped yesterday status post blood transfusion. Objective Current Medications: Current Medications Sig/Howard Start time Last Medication Dose Route Stop Time Status Admin Aspirin 81 MG DAILY 04/25 1000 AC 04/27 PO 1110 Atorvastatin Calcium 40 MG 1700 04/25 1700 AC 04/26 PO 1649 Docusate Sodium 100 MG TID 04/25 1000 AC 04/27 PO 1110 Ferrous Sulfate 325 MG DAILY 04/25 1000 AC 04/26 PO 1046 Heparin Sodium 5,000 UNIT Q8 04/25 1619 DC 04/26 (Porcine) SC 0635 Levofloxacin 750 MG Q48 04/25 1000 AC 04/27 PO 1110 Loratadine 10 MG DAILY 04/25 1000 AC 04/27 PO 1110 Meropenem 1 GM IQ8 04/25 0800 AC 04/27 IV 0924 Metoprolol Tartrate 12.5 MG BID 04/25 1000 AC 04/27 PO 1109 Mycophenolate Mofetil 500 MG BID 04/25 1000 AC 04/27 PO 1110 Nystatin 5 ML TID 04/25 0300 AC 04/27 PO 1110 Omeprazole 20 MG DAILY AC 04/25 0700 AC 04/27 PO 0622 Ondansetron HCl 4 MG Q6P PRN 04/27 0815 AC 04/27 IV 0925 Patient Medication 1 ED .STK-MED ONE 04/26 1430 TX Teaching ED 04/26 1431 Prednisone 5 MG DAILY 04/25 1231 AC 04/27 PO 1109 Ramelteon 8 MG ONCE ONE 04/26 2215 DC 04/26 PO 04/26 2216 2300 Tacrolimus 3.5 MG BID 04/26 2200 AC 04/27 PO 1111 Tacrolimus 3 MG 2100 04/25 2100 DC 04/25 PO 2059 Tacrolimus 2.5 MG 0900 04/25 0900 DC 04/26 PO 1047 Trimethoprim/ 1 TAB MONDAY WED THURSDAY 04/26 1000 AC 04/26 Sulfamethoxazole PO 1047 Vital Signs & I&O Last 24 Hrs of Vitals and I&O: Vital Signs Date Time Temp Pulse Resp B/P B/P Pulse O2 O2 Flow FiO2 Mean Ox Delivery Rate 04/27 1109 82 120/70 04/27 0600 98.4 85 18 130/74 95 Room Air 04/26 2226 98.2 83 19 124/72 95 Nasal Cannula 04/26 2113 98.2 83 18 124/72 04/26 1353 98.2 73 20 125/72 92 Intake & Output 04/27 1600 04/27 0800 04/27 0000 Intake Total 850 480 Output Total 500 400 Balance 350 80 Intake, Blood 350 Product Intake, IV 100 Intake, Oral 400 480 Number 0 Bowel Movements Output, Urine 500 400 Exam General Appearance: no apparent distress, alert, awake, comfortable Head: atraumatic, normal appearance Respiratory: normal breath sounds, chest non-tender, no respiratory distress, lungs clear, mid thoracic surgical incision( pulmonary embolism thrombectomy), left chest surgical incision with mraen in place and some crusted dried secretion and no sign of active infection like erythema, warmth or swelling, left drainage chest tube still in place Cardiovascular: regular rate/rhythm, normal S1 and S2 with no murmur, rubs, or gallops Abdomen: normal bowel sounds, soft, non-tender Extremities: normal inspection, no edema Results Last 24 Hrs of Lab Results: Laboratory Tests 04/27/17 0535: Anion Gap 8, Estimated GFR > 60, BUN/Creatinine Ratio 11.8, CBC w Diff NO MAN DIFF REQ, RBC 2.73 L, MCV 85.9, MCH 28.4, RDW 19.9 H, MPV 7.2 L, Gran % 48.3, Lymphocytes % 30.2, Monocytes % 18.1 H, Eosinophils % 3.3, Basophils % 0.1, Absolute Granulocytes 1.4, Absolute Lymphocytes 0.9 L, Absolute Monocytes 0.5, Absolute Eosinophils 0.1, Absolute Basophils 0, PUBS MCHC 33.0 04/27/17 0000: CBC w Diff Cancelled, WBC Cancelled, RBC Cancelled, Hgb Cancelled, Hct Cancelled , MCV Cancelled, MCH Cancelled, RDW Cancelled, Plt Count Cancelled, MPV Cancelled, PUBS MCHC Cancelled 04/26/17 1600: CBC w Diff Cancelled, WBC Cancelled, RBC Cancelled, Hgb Cancelled, Hct Cancelled , MCV Cancelled, MCH Cancelled, RDW Cancelled, Plt Count Cancelled, MPV Cancelled, PUBS MCHC Cancelled 04/26/17 1335: Total Bilirubin 0.3, Direct Bilirubin 0.2, AST 20, ALT 26, Alkaline Phosphatase 68, Lactate Dehydrogenase 752 H, Total Protein 4.1 L, Albumin 2.5 L, Haptoglobin Pending 04/26/17 1220: CBC w Diff NO MAN DIFF REQ, RBC 2.35 L, MCV 86.0, MCH 28.7, RDW 19.5 H, MPV 6.7 L, Gran % 56.2, Lymphocytes % 25.1, Monocytes % 15.2 H, Eosinophils % 3.0, Basophils % 0.5, Absolute Granulocytes 1.6, Absolute Lymphocytes 0.7 L, Absolute Monocytes 0.4, Absolute Eosinophils 0.1, Absolute Basophils 0, PUBS MCHC 33.3, Retic Count 2.13 H Impression/Plan Impression/Plan Impression/Plan: 66-year-old man with idiopathic pulmonary fibrosis status post lung transplant at [facility] on 10/11/2016, maintained on immunosuppressive therapy since, with multiple postop complications including pulmonary embolism, left pleural effusion, and surgical incision infection who was admitted yesterday because of lethargy, fatigue, dizziness and decreased oral intake, found to have a low-grade fever and anemia without leukocytosis. This morning patient is afebrile, hemodynamically stable, saturating very well on room air, and maintaining a heart rate within normal limits. It was explained to the patient that in his situation it's better that he be managed at a facility with better lung transplant experience however he decided to stay at [place]. Plan: * Patient is stable with no sign or symptoms suggestive of ongoing infection, he is stable for discharge after being instructed to follow-up as an outpatient * Continue antibiotic as per ID * Recheck CBCs before discharge * DVT prophylaxis at all time * Full code The noted it to be discussed with Dr. Barros
--- NOTE | 2017-04-27 13:34 | NUR ---
PTIENT DRESSING ON CHEST DRAIN LINE CHANGED BY JOSE ROGER, CLEANED AEA, DRY GAUZE APPLIED, NO ISSUES NOTED.
[2017-04-27 14:10] VITALS: BP 120/72
[2017-04-27 17:17] LABS: ABSOLUTE BASOPHIL COUNT 0 /CUMM (0.0-0.2); ABSOLUTE EOSINOPHIL COUNT 0 /CUMM (0.0-0.7); ABSOLUTE GRANULOCYTE CT 1.6 /CUMM (1.4-6.5); ABSOLUTE LYMPH COUNT 0.4 /CUMM (1.2-3.4); ABSOLUTE MONOCYTE COUNT 0.4 /CUMM (0.10-0.60); BASOPHIL % 0.3 % (0.0-2.0); EOSINOPHIL % 1.3 % (0-5); MEAN CORPUSCULAR HGB 28.4 PG (27.0-31.0); MEAN CORPUSCULAR HGB CONC 32.9 G/DL (33.0-37.0); MEAN CORPUSCULAR VOLUME 86.1 FL (80.0-94.0); MEAN PLATELET VOLUME 6.6 FL (7.4-10.4); PLATELET COUNT 262 /CUMM (130-400); RBC DISTRIBUTION WIDTH 19.6 % (11.5-14.5); WHITE BLOOD CELL COUNT 2.4 /CUMM (4.8-10.8)
[2017-04-27 22:39] VITALS: BP 122/76
[2017-04-28 06:45] VITALS: BP 128/70
--- NOTE | 2017-04-28 07:19 | PN- Housestaff ---
See Addendum Subjective Follow-up For: Dizziness, lethargy and fatigue IPF s/p L lung transplant on immunosuppresants. Acute blood loss anemia Complaints: no complaints Subjective: Patient seen and exmained at [facility]. Offers no compalints, and blood work done yesterday showed H&H was stable. Review of Systems Constitutional: Denies: chills, fever, weakness. EENTM: Denies: visual changes. Cardiovascular: Denies: chest pain, orthopena, palpitations. Respiratory: Denies: cough, short of breath, sputum production, wheezing. Gastrointestinal: Denies: abdominal pain, constipation, diarrhea, nausea, changes in stool. Genitourinary: Reports: no symptoms. Musculoskeletal: Reports: no symptoms. Neurological/Psychological: Denies: headache, numbness, tingling, tremors. Objective Last 24 Hrs of Vital Signs/I&O Vital Signs Date Time Temp Pulse Resp B/P B/P Pulse O2 O2 Flow FiO2 Mean Ox Delivery Rate 04/27 2239 98.2 75 20 122/76 93 Room Air 04/27 2155 98.2 93 20 122/76 04/27 1410 98.6 86 20 120/72 91 04/27 1109 82 120/70 Intake & Output 04/28 0800 04/28 0000 04/27 1600 Intake Total 480 Output Total 412 500 Balance 68 -500 Intake, Oral 480 Output, Chest 12 Tube Drainage Output, Urine 400 500 Physical Exam General Appearance: Alert, Oriented X3, Cooperative, No Acute Distress HEENT: Atraumatic, PERRLA, EOMI, Mucous Membr. moist/pink Neck: Supple, No JVD, No LAD Cardiovascular: Regular Rate, Normal S1, Normal S2, No Murmurs Lungs: Clear to Auscultation, Normal Air Movement Abdomen: Normal Bowel Sounds, Soft, No Tenderness Neurological: Normal Gait, Normal Speech, Strength at 5/5 X4 Ext, Normal Tone, Sensation Intact, Cranial Nerves 3-12 NL, Reflexes 2+ Extremities: No Clubbing, No Cyanosis, No Edema, Normal Pulses, No Tenderness/ Swelling Vascular: Normal Pulses, Pulses Symmetrical Current Medications: Current Medications Sig/Howard Start time Last Medication Dose Route Stop Time Status Admin Aspirin 81 MG DAILY 04/25 1000 AC 04/27 PO 1110 Atorvastatin Calcium 40 MG 1700 04/25 1700 AC 04/27 PO 1557 Docusate Sodium 100 MG TID 04/25 1000 AC 04/27 PO 1110 Ferrous Sulfate 325 MG DAILY 04/25 1000 AC 04/26 PO 1046 Levofloxacin 750 MG Q48 04/25 1000 AC 04/27 PO 1110 Loratadine 10 MG DAILY 04/25 1000 AC 04/27 PO 1110 Meropenem 1 GM IQ8 04/25 0800 AC 04/28 IV 0008 Metoprolol Tartrate 12.5 MG BID 04/25 1000 AC 04/27 PO 2155 Mycophenolate Mofetil 500 MG BID 04/25 1000 AC 04/27 PO 2154 Nystatin 5 ML TID 04/25 0300 AC 04/27 PO 2154 Omeprazole 20 MG DAILY AC 04/25 0700 AC 04/28 PO 0653 Ondansetron HCl 4 MG .STK-MED ONE 04/27 0924 DC PO 04/27 0925 Ondansetron HCl 4 MG Q6P PRN 04/27 0815 AC 04/27 IV 0925 Prednisone 5 MG DAILY 04/25 1231 AC 04/27 PO 1109 Ramelteon 8 MG ONCE ONE 04/28 0030 DC 04/28 PO 04/28 0031 0031 Tacrolimus 3.5 MG BID 04/26 2200 AC 04/27 PO 215 Trimethoprim/ 1 TAB MONDAY WED THURSDAY 04/26 1000 AC 04/26 Sulfamethoxazole PO 1047 Last 24 Hrs of Lab/Levon Results Last 24 Hrs of Labs/Mics: Laboratory Tests 04/28/17 0700: CBC w Diff Pending, WBC Pending, RBC Pending, Hgb Pending, Hct Pending, MCV Pending, MCH Pending, RDW Pending, Plt Count Pending, MPV Pending, PUBS MCHC Pending 04/27/17 1650: CBC w Diff MAN DIFF ORDERED, RBC 2.90 L, MCV 86.1, MCH 28.4, RDW 19.6 H, MPV 6.6 L, Gran % 65.0, Lymphocytes % 16.2 L, Monocytes % 17.2 H, Eosinophils % 1.3, Basophils % 0.3, Absolute Granulocytes 1.6, Absolute Lymphocytes 0.4 L, Absolute Monocytes 0.4, Absolute Eosinophils 0, Absolute Basophils 0, Platelet Estimate ADEQUATE, Hypochromic-Microcytic 1+, Poikilocytosis 1+, Stomatocytes RARE, Elliptocytes 1+, PUBS MCHC 32.9 L Assessment/Plan Assessment: 66-year-old male with a PMH of CAD s/p stents, interstitial pulmonary fibrosis status post left lung transplant on 10/11/2016 at [facility] (currently on CellCept, Prograf and oral steroids), complicated by massive pulmonary embolism s/p surgical thrombectomy and IVC filter placement as well as surgical site infection with Mycobacterium Fortuitum (on Meropenem, and Levofloxacin, Bactrim for PCP prophylaxis, Valganciclovir), and development of persistent left-sided pleural effusion s/p decortication and chest tube placement, who presented to the ER with chief complaints of dizziness, lethargy and fevers going on for the past 2 weeks, with decreased by mouth intake, mild increase in cough and non-purulent sputum production with mild nausea going on for the past 3 days. Vitals at the time of admission blood pressure 167/94, respiratory rate of 18, tachycardic to 105, MAXIMUM TEMPERATURE 100.2 saturating 94% on room air. On physical exam he was A&O 3, cooperative, no acute distress, neck supple, JVD normal, no lymphadenopathy, mucosa moist, no focal neurological deficit, no dependent edema, no obvious skin rashes or inflammation except stage I sacral decubitus with no secondary infection. Cardiovascular exam revealed normal S1- S2, and respiratory exam pertinent for diffuse crackles on right side, clear on left, chest tube present on left side draining straw-colored fluid, maren in place, no local fluctuation crepitus or drainage, mild induration present. Abdomen was soft, NT, ND, bowel sounds present. Labs pertinent for H&H of 9.0/27.4, white blood cell count of 4900, platelet count of 305,000. His CMP was unremarkable. First set of troponin negative at less than 0.01, UA unremarkable. Head CT was done which showed no acute intracranial pathology. CTA chest was done which showed no evidence of pulmonary embolism, extensive fibrotic changes throughout the right lung without suspicious pulmonary nodules. Post transplant findings on the left side with a small effusion and underlying atelectasis as noted without evidence of focal infiltrate or other acute process. He was admitted to the general medicine floor and the following problems were addressed: #Dizziness and lethargy Resolved. 2/2 decreased PO intake and anemia. #Low grade fevers -Patient had a Tmax of 100.2F on admission. - However, he remained afebrile since. - Continue home medications of Meropenem, Levofloxacin, Bactrim, - Reiteriated for his had to bring in Vangalcyclovir. - F/U pleural fluid for routine and AFB culture. - ID on board, follow recs. #Acute blood loss anemia - H&H dropped from 9.0 to 6.7 on his 2nd post-admission day. -2/2 hemolytic anemia, vs bleeding in pleural space. Workup not cw hemolysis. - No S&Sof active bleeding including bleeding from his rectum and/orfrank bleeeding in his chest tube. - CXR done did not reveal any worsening of effusion and that he was not bleeding in his pleural cavity. - H&H was repeated yesterday dn has remained stable. If stabkle this am, can be discharged home with follow up with his transplant doctor on Monday #IPF s/p left lung transplant - Continue on Tacrolimus, Cellcept 500mg PO BID, Prednisone 5mg daily. - Increased Tacrolimus to 3.5mg BID PO as per Dr. Naylor, patient's primary transplant surgeon at [facility]. - Repeat levels fo Tacrolims today 04/28/17, and follow up with Dr. Friedman on Monday05/01/17. #CAD s/p stent Continue ASA 81mg daily, Lipitor 40mg daily, Lopressor 12.5mg BID PO. #GERD Continue Prilosec 20mg daily. #Left sided pneumothorax and pleural effusion s/p pleurax catheter placement - He had a left sided pleurax catheter that drained about 30mls/12 hrs. CXR done in the hospital did not reveal any pneumothorax. - Speaking with Dr. Naylor revealed taht he planned on pulling his chest tube if the pneumothorax had resolved. Decision to pull out the chest tube drain will be deferred to Dr. Naylor with whom the patient has an appointment for May 01, 2017. -DVT prophylaxis -- On ALPs given ABLA. - Code Status - Full Code Problem List: 1. Weakness 2. Anemia Pain Ratin Pain Location: n/a Pain Goal: Remain pain free Pain Plan: not on meds, as we dont want fever to be masked Tomorrow's Labs & Rationales: n/a Consulting Request: Consulting Specialty: Pulmonary Disease Discharge Plan Discharge Disposition: home (pending CBC) Stable for Discharge? Yes Anticipated Discharge (Day): today
[2017-04-28 08:56] LABS: ABSOLUTE BASOPHIL COUNT 0 /CUMM (0.0-0.2); ABSOLUTE EOSINOPHIL COUNT 0.1 /CUMM (0.0-0.7); ABSOLUTE GRANULOCYTE CT 1.3 /CUMM (1.4-6.5); ABSOLUTE LYMPH COUNT 0.9 /CUMM (1.2-3.4); ABSOLUTE MONOCYTE COUNT 0.5 /CUMM (0.10-0.60); BASOPHIL % 0.6 % (0.0-2.0); EOSINOPHIL % 3.4 % (0-5); GRANULOCYTE % 45.4 % (42.2-75.2); HEMATOCRIT 23.1 % (42-52); MEAN CORPUSCULAR HGB 28.5 PG (27.0-31.0); MEAN CORPUSCULAR HGB CONC 33.1 G/DL (33.0-37.0); MEAN CORPUSCULAR VOLUME 86.1 FL (80.0-94.0); MEAN PLATELET VOLUME 6.9 FL (7.4-10.4); PLATELET COUNT 227 /CUMM (130-400); RED BLOOD CELL CT 2.69 /CUMM (4.70-6.10); WHITE BLOOD CELL COUNT 2.9 /CUMM (4.8-10.8)
[2017-04-28 10:26] VITALS: BP 124/70
[2017-04-28] MEDS ORDERED: MEROPENEM1 G1 IV (12:00)
--- NOTE | 2017-04-28 17:56 | PN- Pulmonary ---
Subjective HPI/Critical Care Issues: Seen early am pt sleeping ROS could not be obtained Physical Exam General Appearance: sleeping No Acute Distress HEENT: Atraumatic, PERRLA, EOMI, Mucous Membr. moist/pink Neck: Supple, No JVD, No LAD Cardiovascular: Regular Rate, Normal S1, Normal S2, No Murmurs Lungs: Clear to Auscultation, Normal Air Movement Abdomen: Normal Bowel Sounds, Soft, No Tenderness Neurological: Normal Gait, Normal Speech, Strength at 5/5 X4 Ext, Normal Tone, Sensation Intact, Cranial Nerves 3-12 NL, Reflexes 2+ Extremities: No Clubbing, No Cyanosis, No Edema, Normal Pulses, No Tenderness/ Swelling Vascular: Normal Pulses, Pulses Symmetrical Objective Current Medications: Current Medications Sig/Howard Start time Last Medication Dose Route Stop Time Status Admin Aspirin 81 MG DAILY 04/25 1000 DCD 04/28 PO 1025 Atorvastatin Calcium 40 MG 1700 04/25 1700 DCD 04/27 PO 1557 Docusate Sodium 100 MG TID 04/25 1000 DCD 04/27 PO 1110 Ferrous Sulfate 325 MG DAILY 04/25 1000 DCD 04/26 PO 1046 Levofloxacin 750 MG Q48 04/25 1000 DCD 04/27 PO 1110 Loratadine 10 MG DAILY 04/25 1000 DCD 04/28 PO 1025 Meropenem 1 GM IQ8 04/25 0800 DCD 04/28 IV 0827 Metoprolol Tartrate 12.5 MG BID 04/25 1000 DCD 04/28 PO 1026 Mycophenolate Mofetil 500 MG BID 04/25 1000 DCD 04/28 PO 1025 Nystatin 5 ML TID 04/25 0300 DCD 04/28 PO 1026 Omeprazole 20 MG DAILY AC 04/25 0700 DCD 04/28 PO 0653 Ondansetron HCl 4 MG Q6P PRN 04/27 0815 DCD 04/28 IV 0830 Prednisone 5 MG DAILY 04/25 1231 DCD 04/28 PO 1026 Ramelteon 8 MG ONCE ONE 04/28 0030 DC 04/28 PO 04/28 0031 0031 Tacrolimus 3.5 MG BID 04/26 2200 DCD 04/28 PO 1027 Trimethoprim/ 1 TAB MONDAY WED THURSDAY 04/26 1000 DCD 04/28 Sulfamethoxazole PO 1025 Vital Signs & I&O Last 24 Hrs of Vitals and I&O: Vital Signs Date Time Temp Pulse Resp B/P B/P Pulse O2 O2 Flow FiO2 Mean Ox Delivery Rate 04/28 1026 70 124/70 04/28 0645 98.6 71 18 128/70 92 Room Air 04/28 0000 93 Room Air 04/27 2239 98.2 75 20 122/76 93 Room Air 04/27 2155 98.2 93 20 122/76 Intake & Output 04/28 1600 04/28 0800 04/28 0000 Intake Total 200 480 Output Total 300 412 Balance -100 68 Intake, IV 0 Intake, Oral 200 480 Number 0 Bowel Movements Output, Chest 12 Tube Drainage Output, Urine 300 400 Impression/Plan Impression/Plan Impression/Plan: 66-year-old male with a PMH of CAD s/p stents, interstitial pulmonary fibrosis status post left lung transplant on 10/11/2016 at [facility] (currently on CellCept, Prograf and oral steroids), complicated by massive pulmonary embolism s/p surgical thrombectomy and IVC filter placement as well as surgical site infection with Mycobacterium Fortuitum (on Meropenem, and Levofloxacin, Bactrim for PCP prophylaxis, Valganciclovir), and development of persistent left-sided pleural effusion s/p decortication and chest tube placement, who presented to the ER with chief complaints of dizziness, lethargy and fevers going on for the past 2 weeks, with decreased by mouth intake, mild increase in cough and non-purulent sputum production with mild nausea going on for the past 3 days. Clinically imroved Cont all meds ok to go home has follow up with fer on monday
== END 2017-04-28 12:25 | disposition home health service (06) | DRG 864 ==
LOC: DELPENDDIS → ERH 18:04 → 2NA 23:23 → ERHI 23:23 → ENRESERV 04-25 00:45 → EDBEDREQ 04-25 01:05 → 2NA 04-25 02:47 → ENPENDDIS 04-26 11:02 → 2NA 04-28 12:25
PROVIDERS: Internal Medicine Infectious Disease; Physician Assistant; ADMIT Internal Medicine
PROC: 30233N1 Transfusion of Nonautologous Red Blood Cells into Peripheral Vein, Percutaneous Approach (ICD-10-PCS; principal; 2017-04-26)
DX: R50.9 Fever, unspecified (principal); L89.151 Pressure ulcer of sacral region, stage 1; J96.10 Chronic respiratory failure, unspecified whether with hypoxia or hypercapnia; J91.8 Pleural effusion in other conditions classified elsewhere; J90 Pleural effusion, not elsewhere classified; Z94.2 Lung transplant status; D62 Acute posthemorrhagic anemia; J84.10 Pulmonary fibrosis, unspecified; Z99.81 Dependence on supplemental oxygen; I25.10 Atherosclerotic heart disease of native coronary artery without angina pectoris; Z95.5 Presence of coronary angioplasty implant and graft; Z86.711 Personal history of pulmonary embolism; Z95.9 Presence of cardiac and vascular implant and graft, unspecified; K21.9 Gastro-esophageal reflux disease without esophagitis; I10 Essential (primary) hypertension; E78.5 Hyperlipidemia, unspecified; J44.9 Chronic obstructive pulmonary disease, unspecified; D72.819 Decreased white blood cell count, unspecified
CPT/HCPCS: 2NAP; 87075; ERO; 36415; 81003; 82436; 83010; 86920; 87040; 87070; 87071; 87086; 87147; 93005; 93010; 96374; J0131; J1644; J2185; J2405; J3101; J3490; J7512; J7517; P9040